=== PATIENT | female | born 1955 | race Caucasian/White ===

== ENCOUNTER 2016-11-21 14:44 | Emergency (ER) | payer BC ==
[2016-11-21 14:54] VITALS: RESP 18
--- NOTE | 2016-11-21 15:40 | ED ---
Abdominal Pain HPI - General Chief Complaint: Abdominal Pain Stated Complaint: Constipation Time Seen by Provider: 11/21/16 15:21 Source: patient Mode of arrival: ambulatory Limitations: no limitations - History of Present Illness Initial Comments: This is a 61-year-old female with a history of bariatric surgery, appendectomy, bowel torsion or presents emergency department for constipation 9 days. Right lower quadrant pain and right thoracic lateral back pain. She states that the symptoms been going on for the last 9 days however have progressively worsened over the last couple of days. The patient states that she has had very small bowel movements over the last 9 days. She does admit to passing flatus. She denies any nausea or vomiting. She states that when this all started she had 4 black stools and think that she may have seen a piece of plastic in one her stools. She does admit that she had surgery done a while ago because an IUD eroded into her bowel. She denies any fevers or chills. The patient is on opiates chronically for fibromyalgia however this pain is not typical for her fibromyalgia. She denies any dysuria however does admit to urinary frequency. No other complaints. - Related Data Home Medications Medication Instructions Recorded Confirmed Albuterol Sulfate [Proair Hfa] 2 puff INHALATION RT-Q6H PRN 01/14/16 11/21/16 FLUoxetine HCL [PROzac] 40 mg PO DAILY 01/14/16 11/21/16 Methocarbamol [Robaxin-750] 750 mg PO TID PRN 01/14/16 11/21/16 Pramipexole [Mirapex] 0.25 mg PO HS 01/14/16 11/21/16 Temazepam [Restoril] 30 mg PO HS 01/14/16 11/21/16 oxyCODONE HCL 20 mg PO 5XD 01/14/16 11/21/16 traZODone HCL [Desyrel] 100 mg PO HS 01/14/16 11/21/16 Propranolol [Inderal] 10 mg PO BID 11/21/16 11/21/16 oxyCODONE HCL [OxyCONTIN] 10 mg PO TID 11/21/16 11/21/16 Previous Rx's Medication Instructions Recorded Bisacodyl [Dulcolax] 10 mg RECTAL DAILY #20 supp 11/21/16 Allergies Allergy/AdvReac Type Severity Reaction Status Date / Time atropine sulfate Allergy Rash/Hives Verified 11/21/16 15:44 [From ] Barbiturates Allergy Swelling Verified 11/21/16 15:44 Histamine H2 Inhibitors Allergy Unknown Verified 11/21/16 15:44 hyoscyamine sulfate Allergy Rash/Hives Verified 11/21/16 15:44 [From ] phenobarbital [From ] Allergy Rash/Hives Verified 11/21/16 15:44 scopolamine hydrobromide Allergy Rash/Hives Verified 11/21/16 15:44 [From ] adhesive AdvReac red skin Verified 11/21/16 15:44 lorazepam [From Ativan] AdvReac Nausea & Verified 11/21/16 15:44 Vomiting meperidine HCl [From Demerol] AdvReac elevated BP Verified 11/21/16 15:44 metronidazole [From Flagyl] AdvReac headache, Verified 11/21/16 15:44 arms numb Sulfa (Sulfonamide AdvReac Nausea & Verified 11/21/16 15:44 Antibiotics) Vomiting Review of Systems ROS Statement: Those systems with pertinent positive or pertinent negative responses have been documented in the HPI. ROS Other: All systems not noted in ROS Statement are negative. Past Medical History Past Medical History: Cancer, Fibromyalgia, Memory Impairment, Osteoarthritis ( OA) Additional Past Medical History / Comment(s): essential tremors, DDD, chronic pain, hx. skin cancer History of Any Multi-Drug Resistant Organisms: MRSA Date of last positivie culture/infection: 2011 MDRO Source:: buttock Past Surgical History: Appendectomy, Bariatric Surgery, Joint Replacement, Orthopedic Surgery, Tonsillectomy, Tubal Ligation Additional Past Surgical History / Comment(s): gastric sleeve, uterine repair surg. from an IUD, neuroma removed indu. feet, bunionectomy, tendon release right leg, total left knee Past Anesthesia/Blood Transfusion Reactions: Postoperative Nausea & Vomiting ( PONV) Additional Past Anesthesia/Blood Transfusion Reaction / Comment(s): PONV, dizzy Past Psychological History: Anxiety, Depression Smoking Status: Former smoker Past Alcohol Use History: None Reported Additional Past Alcohol Use History / Comment(s): quit smoking 30 yrs. ago, smoked for 2 yrs. Past Drug Use History: None Reported - Past Family History Brother(s) Family Medical History: Cancer General Exam - General Exam Comments Initial Comments: Constitutional: Awake alert Appears comfortable Head: Normocephalic atraumatic Eyes: no conjunctival injection No scleral icterus EOMI Neck: No JVD Supple Heart: Regular rate rhythm normal S1-S2 no murmurs Lungs: Clear to auscultation bilaterally No wheezing No rales Abdomen: Soft nondistended patient has some mild tenderness in the right upper and lower quadrants however no rebound or guarding. The patient does not wince when I palpate her abdomen deeply. Extremities: Non edematous DP pulses intact Radial pulses intact Neuro: A&Ox3 No focal neurologic deficits Psych: Appropriate mood and affect Limitations: no limitations Course Vital Signs 11/21/16 14:48 Temperature 96.7 F L Pulse Rate 62 Respiratory 18 Rate Blood Pressure 185/83 O2 Sat by Pulse 98 Oximetry - Reevaluation(s) Reevaluation #1: 11/21/16 17:18 Patient states that she's having a significant extent amount of discomfort however there is no objective tenderness on examination. I told her I would Pursue a CAT Scan Because of Her Surgical History. X-Ray Was Reviewed and Unremarkable. Going to Give Some Morphine As Well. Medical Decision Making - Medical Decision Making Patient is currently comfortable. Computed tomography scan was reviewed and unremarkable for any acute findings. At this time believe that the patient's symptoms are likely due to constipation. Going to send her home with Dulcolax suppositories. She has MiraLAX at home that she can take her she can follow-up with her primary doctor. She can return if she has worsening or changing symptoms or all questions were answered. - Lab Data Result diagrams: 11/21/16 15:15 11/21/16 15:15 Lab Results 11/21/16 11/21/16 11/21/16 Range/Units 15:15 15:15 15:15 WBC 3.7 L (3.8-10.6) k/uL RBC 4.07 (3.80-5.40) m/uL Hgb 12.8 (11.4-16.0) gm/dL Hct 39.3 (34.0-46.0) % MCV 96.6 (80.0-100.0) fL MCH 31.4 (25.0-35.0) pg MCHC 32.6 (31.0-37.0) g/dL RDW 13.7 (11.5-15.5) % Plt Count 184 (150-450) k/uL Neutrophils % 61 % Lymphocytes % 29 % Monocytes % 6 % Eosinophils % 2 % Basophils % 1 % Neutrophils # 2.3 (1.3-7.7) k/uL Lymphocytes # 1.1 (1.0-4.8) k/uL Monocytes # 0.2 (0-1.0) k/uL Eosinophils # 0.1 (0-0.7) k/uL Basophils # 0.0 (0-0.2) k/uL Sodium 139 (137-145) mmol/L Potassium 4.6 (3.5-5.1) mmol/L Chloride 103 (98-107) mmol/L Carbon Dioxide 27 (22-30) mmol/L Anion Gap 9 mmol/L BUN 13 (7-17) mg/dL Creatinine 0.72 (0.52-1.04) mg/dL Est GFR (MDRD) Af Amer >60 (>60 ml/min/1.73 sqM) Est GFR (MDRD) Non-Af >60 (>60 ml/min/1.73 sqM) Glucose 100 H (74-99) mg/dL Calcium 9.6 (8.4-10.2) mg/dL Total Bilirubin 0.9 (0.2-1.3) mg/dL AST 22 (14-36) U/L ALT 33 (9-52) U/L Alkaline Phosphatase 94 (38-126) U/L Total Protein 6.8 (6.3-8.2) g/dL Albumin 4.2 (3.5-5.0) g/dL Amylase <30 L (30-110) U/L Lipase 20 L (23-300) U/L Urine Color Light Yellow Urine Appearance Clear (Clear) Urine pH 7.0 (5.0-8.0) Ur Specific Reese 1.009 (1.001-1.035) Urine Protein Negative (Negative) Urine Glucose (UA) Negative (Negative) Urine Ketones 1+ H (Negative) Urine Blood Negative (Negative) Urine Nitrate Negative (Negative) Urine Bilirubin Negative (Negative) Urine Urobilinogen <2.0 (<2.0) mg/dL Ur Leukocyte Esterase Trace H (Negative) Urine RBC 1 (0-5) /hpf Ur Squamous Epith Cells 1 (0-4) /hpf Hyaline Casts 1 (0-2) /lpf Urine Mucus Rare H (None) /hpf Disposition Clinical Impression: Abdominal pain Disposition: HOME SELF-CARE Condition: Stable Instructions: Abdominal Pain (ED) Prescriptions: Bisacodyl [Dulcolax] 10 mg RECTAL DAILY #20 supp Referrals: Ceasar Paulino MD [Primary Care Provider] - 1-2 days
[2016-11-21 16:28] LABS: Appearance,Urine Clear (Clear); Bilirubin,Urine Negative (Negative); Glucose,Urine (UA) Negative (Negative); Ketones,Urine 1+ (Negative); Leukocyte Esterase,Urine Trace (Negative); Mucus,Urine Rare /hpf; Nitrite,Urine Negative (Negative); Particle Count 1560; Protein,Urine Negative (Negative); RBC,Urine 1 /hpf (0-5); Specific Gravity,Urine 1.009 (1.001-1.035); Squamous Epithelial Cell,Urine 1 /hpf (0-4); UA Billing (MACRO vs. MICRO) MICRO; Urobilinogen,Urine <2.0 mg/dL (<2.0)
[2016-11-21 16:30] LABS: Basophils % (A) 1 %; CH 32.9; CHCM 34.2; Eosinophils # (A) 0.1 k/uL (0-0.7); Eosinophils % (A) 2 %; HCT 39.3 % (34.0-46.0); HDW 2.65; HGB 12.8 gm/dL (11.4-16.0); Luc # (Auto) 0.07; Luc % (Auto) 2; Lymphocytes # (A) 1.1 k/uL (1.0-4.8); Lymphocytes % (A) 29 %; MCH 31.4 pg (25.0-35.0); MCHC 32.6 g/dL (31.0-37.0); MCV 96.6 fL (80.0-100.0); Mean Platelet Volume 7.6; Monocytes # (A) 0.2 k/uL (0-1.0); Monocytes % (A) 6 %; Neutrophils # (A) 2.3 k/uL (1.3-7.7); Neutrophils % (A) 61 %; RBC 4.07 m/uL (3.80-5.40); RDW 13.7 % (11.5-15.5); WBC 3.7 k/uL (3.8-10.6)
[2016-11-21 16:36] LABS: ALT 33 U/L (9-52); AST 22 U/L (14-36); Alkaline Phosphatase 94 U/L (38-126); Amylase <30 U/L (30-110); Anion Gap 9 mmol/L; Blood Urea Nitrogen 13 mg/dL (7-17); Calcium 9.6 mg/dL (8.4-10.2); Carbon Dioxide 27 mmol/L (22-30); Chloride 103 mmol/L (98-107); Glucose 100 mg/dL (74-99); Non-African American GFR(MDRD) >60 (>60 ml/min/1.73 sqM); Potassium 4.6 mmol/L (3.5-5.1); Sodium 139 mmol/L (137-145); Total Bilirubin 0.9 mg/dL (0.2-1.3); Total Protein 6.8 g/dL (6.3-8.2)
--- NOTE | 2016-11-21 16:42 | XR ---
EXAMINATION TYPE: XR abdomen acute w cxr DATE OF EXAM: 11/21/2016 4:37 PM COMPARISON: NONE HISTORY: Constipation, right-sided abdominal pain TECHNIQUE: Single view of the chest and 2 views of the abdomen are submitted on a total of 4 images. FINDINGS: Single view of the chest demonstrates no evidence for acute pulmonary disease. The patient is rotate d. Some linear stranding likely reflects some atelectasis or scarring towards the left lower lobe. There is no evidence for pneumoperitoneum. There is a spinal curvature present. Probable vascular ca lcifications within the pelvis. Degenerative disc changes in the visualized spine. There is overlying artifact. The bowel gas pattern is unremarkable as there is air throughout nondilated small and large bowel. No sizeable air fluid levels. No mass effects are seen. No unusual calcifications. IMPRESSION: Unremarkable study
[2016-11-21] MEDS ORDERED: MORPHINE SULFATE 4 MG/ML SYRINGE IVP STA (17:16)
--- NOTE | 2016-11-21 18:12 | CT ---
EXAMINATION TYPE: CT abdomen pelvis wo con DATE OF EXAM: 11/21/2016 5:35 PM COMPARISON: NONE HISTORY: Mid to Right lower pain. CT DLP: 839 mGycm Automated exposure control for dose reduction was used. TECHNIQUE: Helical acquisition of images was performed from the lung bases through the pelvis. FINDINGS: The lung bases are clear. There is no pleural effusion. There is a hiatal hernia. Liver spleen pancreas and gallbladder appear normal. Bile ducts are not dilated. There is no adrenal mass. Kidneys have normal size. There is slight fullness of the right renal pelvis. Ureters are not d ilated. I see no enlargement of the calyces. There is no evidence of a renal mass. There is no retrop eritoneal adenopathy. There is no ascites. Bladder distends smoothly. I see no intestinal wall thicke lucas. There are no dilated loops. Appendix is not seen. There is no sign of appendicitis. I see no gabi ny destructive process. Uterus is retroverted. IMPRESSION: NO EVIDENCE OF RENAL STONE OR OBSTRUCTION. NO EVIDENCE OF APPENDICITIS. NO SIGN OF ACUTE ABDOMEN AND PELVIS. HIATAL HERNIA. PREVIOUS GASTRIC SURGERY NOTED.
[2016-11-21 19:24] VITALS: BP 183/83; PULSE 59; TEMP 97.1
== END 2016-11-21 19:25 | disposition home or self-care (01) ==
LOC: EC 14:44
DX: R10.11 Right upper quadrant pain (principal); K59.00 Constipation, unspecified; K44.9 Diaphragmatic hernia without obstruction or gangrene; M79.7 Fibromyalgia; R41.3 Other amnesia; F41.9 Anxiety disorder, unspecified; F32.9 Major depressive disorder, single episode, unspecified; M19.90 Unspecified osteoarthritis, unspecified site; Z87.891 Personal history of nicotine dependence; Z85.828 Personal history of other malignant neoplasm of skin; Z80.9 Family history of malignant neoplasm, unspecified; Z98.84 Bariatric surgery status; Z88.8 Allergy status to other drugs, medicaments and biological substances; Z91.048 Other nonmedicinal substance allergy status; Z88.5 Allergy status to narcotic agent; Z88.2 Allergy status to sulfonamides; Z79.899 Other long term (current) drug therapy; Z79.891 Long term (current) use of opiate analgesic
CPT/HCPCS: 99284 ×2; 96374 ×2; 36415; 80053; 82150; 83690; 85025; 81001; 74022; 74176; J2270

== ENCOUNTER → 2017-06-21 | Outpatient (CLI) | payer BC ==
[2017-06-21 18:31] LABS: Non-African American GFR(MDRD) >60 (>60 ml/min/1.73 sqM)
== END | disposition home or self-care (01) ==
LOC: LABWHC1 12:21
PROVIDERS: ATTEND Psychiatry & Neurology Neurology
DX: Z01.812 Encounter for preprocedural laboratory examination (principal); R41.3 Other amnesia; R26.89 Other abnormalities of gait and mobility
CPT/HCPCS: 36415; 82306; 82565; 82607; 84439; 84443

== ENCOUNTER → 2017-06-22 | Outpatient (CLI) | payer BC ==
--- NOTE | 2017-06-22 09:11 | MR ---
EXAMINATION TYPE: MR brain wo/w con DATE OF EXAM: 06/22/2017 8:15 AM COMPARISON: 10 and 714 HISTORY: Memory Loss / Imbalance CONTRAST: Patient received 15 mL intravenous MultiHance gadolinium contrast. Multiplanar and multispin-echo imaging of the brain was performed . Pre and post contrast enhanced i mages are obtained. The ventricles, basal cisterns and sulci overlying the cerebral convexities are mildly enlarged. There is evidence of mild periventricular white matter ischemic demyelination. Stable nonspecific white matter changes. No acute edema is seen on diffusion weighted imaging. There is no evidence for midline shift or mass effect. Acute intracranial hemorrhage or extra-axial collection is not evident. No enhancing lesions are seen. Mild mucosal thickening of the maxillary sinuses. Small amount of fluid within the right-sided mastoi d air cells unchanged. IMPRESSION: 1. stable nonspecific white matter changes. 2. Mild chronic paranasal sinusitis and chronic right-sided mastoiditis.
== END | disposition home or self-care (01) ==
LOC: RADMRIMAIN 07:31
PROVIDERS: ATTEND Psychiatry & Neurology Neurology
DX: R90.82 White matter disease, unspecified (principal); H70.91 Unspecified mastoiditis, right ear; J34.89 Other specified disorders of nose and nasal sinuses
CPT/HCPCS: 70553; A9577

== ENCOUNTER 2017-11-28 09:30 | Day surgery (SDC) | payer BC ==
[2017-11-27 12:04] VITALS: BMI 29.5
[~2017-11-28 09:30] MED LIST: LACTATED RINGERS 1,000 ML IV SCH; LIDOCAINE 1% 20 ML VIAL (10MG/ML) FOR IV START INTRADERMA PRN
[2017-11-28 10:27] VITALS: TEMP 97.3
[2017-11-28] MEDS ORDERED: PROPOFOL 10 MG/ML 20 ML VIAL IV ONE (11:10)
--- NOTE | 2017-11-28 11:32 | P.PCN ---
Date of Procedure: 11/28/17 Procedure(s) Performed: BRIEF HISTORY: Patient is a 62-year-old [place] white female,scheduled for an elective colonoscopy as a part of screening for colorectal neoplasia. She stated that she was noted to have a positive cologard testing. PROCEDURE PERFORMED: Colonoscopy. PREOPERATIVE DIAGNOSIS: Screening for colon cancer. IV sedation per Anesthesia. PROCEDURE: After informed consent was obtained, the patient, was brought into the endoscopy unit. IV sedation was administered by Anesthesia under continuous monitoring. Digital rectal examination was normal. Initially the Olympus CF- 160 flexible video colonoscope was then inserted in the rectum, gradually advanced into ththe hepatic flexure and further advancement was not done because of extremely poor prep that was encountered in the right colon.Careful examination was performed as the scope was gradually being withdrawn. mucosa of the transverse colon, descending colon, sigmoid colon, and rectum appeared normal. Retroflexion was performed in the rectum and no lesions were seen. The patient tolerated the procedure well. IMPRESSION: Poor prep in the right colon and scope was not advanced into the cecum. Rest of the colon appeared normal. RECOMMENDATIONS: Findings of this examination were discussed with the patient as well as a family. Because of extremely poor prep that was encountered on today's examination, she was advised to have a repeat screening colonoscopy in a few weeks with a 2 day prep.
[2017-11-28 11:34] VITALS: RESP 16
[2017-11-28 12:11] VITALS: BP 112/70; PULSE 88
== END 2017-11-28 12:13 | disposition home or self-care (01) ==
LOC: ORWHC2ENDO 09:30
PROVIDERS: ATTEND Internal Medicine Gastroenterology
DX: Z12.11 Encounter for screening for malignant neoplasm of colon (principal); Z53.09 Procedure and treatment not carried out because of other contraindication; F32.9 Major depressive disorder, single episode, unspecified; G89.29 Other chronic pain; Z88.8 Allergy status to other drugs, medicaments and biological substances; Z79.899 Other long term (current) drug therapy
CPT/HCPCS: J2704; G0121

== ENCOUNTER → 2018-01-01 | Outpatient (CLI) | payer BC ==
--- NOTE | 2018-01-01 11:33 | CT ---
EXAMINATION TYPE: CT sinus wo con DATE OF EXAM: 01/01/2018 COMPARISON: NONE HISTORY: Chronic sinusitis, infection CT DLP: 612.0 mGycm. Automated Exposure Control for Dose Reduction was Utilized. TECHNIQUE: CT scan of the sinuses is performed without contrast, axial images are obtained, coronal r eformatted images are also reviewed. FINDINGS: Mild mucosal thickening involving the ethmoid air cells maxillary sinus and frontal sinus. Tiny mucous retention cysts within each maxillary antrum. There is a wide patency of the ostium of the maxillary sinus with postsurgical changes suggested. Changes compatible with nasal septal deviation. Visualized portion of mastoid air cells show no abnormal opacification. The globes are intact bilate rally. IMPRESSION: 1. Postsurgical change with findings compatible with mild residual chronic sinusitis.
== END | disposition home or self-care (01) ==
LOC: RADCTMAIN 10:57
PROVIDERS: ATTEND Otolaryngology
DX: J32.9 Chronic sinusitis, unspecified (principal); Z98.890 Other specified postprocedural states
CPT/HCPCS: 70486

== ENCOUNTER → 2018-05-09 | Outpatient (CLI) | payer BC ==
--- NOTE | 2018-05-09 11:57 | MR ---
EXAMINATION TYPE: MR lumbar spine wo con DATE OF EXAM: 05/09/2018 COMPARISON: CT abdomen pelvis 11/21/2016 HISTORY: Left-sided pain radiating to left leg, M 54.16 TECHNIQUE: Multiplanar, multisequence images of the lumbar spine were acquired. L1-L2: Facet arthropathy change causes some encroachment on the lateral recesses right greater than l eft, circumferential extension of endplate disc complex results in some right-sided foraminal encroac hment. No significant central stenosis. L2-L3: Circumferential posterior disc bulge causes anterior mass effect on the thecal sac, there is f acet arthropathy resulting in a trefoil appearance of the thecal sac, no significant central stenosis or foraminal encroachment. L3-L4: Inferior endplate of L3 shows a probable Schmorl's node. Posterior extension of endplate disc complex causes anterior mass effect on the thecal sac, mild central canal stenosis. Hypertrophic guillen ges are present at the facets encroaching on the lateral recesses, lateral extension endplate disc co mplex causes foraminal encroachment bilaterally. L4-L5: Posterior broad-based disc bulge causes anterior mass effect on the thecal sac. Hypertrophic c hange of the facets and ligamentum flavum encroaches on the lateral recesses greater on the right penelope n on the left, circumferential extension of endplate disc complex encroaches somewhat on the right ne ural foramen. There is a trefoil appearance of the thecal sac. Mild spinal stenosis noted. Probable s ynovial cyst present lateral to the facet joint on the left could possibly contact the left L4 nerve root. L5-S1: Broad-based posterior disc bulge causes mild anterior mass effect on the thecal sac. No signif icant central stenosis. There is facet arthropathy with hypertrophic change of the ligamentum flavum. No significant foraminal encroachment. Lumbar segments are intact. No paraspinal masses are identified. Conus medullaris has a normal appe arance. There is a spinal curvature. Multilevel spondylosis is again noted, there is endplate discoge violeta marrow signal change, loss of disc height signal is present especially at L1-2 and also at L2-3, L3-4, L4-5 show loss of signal compatible with disc desiccation and degenerative disc disease. IMPRESSION: Multilevel degenerative disc disease, facet arthropathy and foraminal encroachment as described, donte elate for appropriate radiculopathies. Scoliosis.
== END | disposition home or self-care (01) ==
LOC: RADMRIMAIN 09:51
PROVIDERS: ATTEND Pain Medicine Pain Medicine
DX: M51.36 Other intervertebral disc degeneration, lumbar region (principal); M47.816 Spondylosis without myelopathy or radiculopathy, lumbar region; M41.9 Scoliosis, unspecified
CPT/HCPCS: 72148

== ENCOUNTER 2018-06-11 09:42 | Inpatient (IN) | payer BC ==
[2018-05-30 08:57] VITALS: BMI 28.7
[~2018-06-11 09:42] MED LIST changes: +ACETAMINOPHEN TAB 500 MG TAB PO ONE; +DEXAMETHASONE SOD PHOSPHATE 10 MG/ML 1 ML VIAL IV ONE; -LACTATED RINGERS 1,000 ML IV SCH; -LIDOCAINE 1% 20 ML VIAL (10MG/ML) FOR IV START INTRADERMA PRN; +MELOXICAM 7.5 MG TAB PO ONE; +MORPHINE SULFATE 4 MG/ML SYRINGE IV PRN; +ONDANSETRON 4 MG/2 ML VIAL IVP ONE; +ROPIVACAINE 246.25 MG, EPINEPHrine 0.5 MG, KETOROLAC 30 MG, cloNIDine HCL/PF 80 MCG, WA... MISCELLANE ONE; +TRANEXAMIC ACID 1,000 MG in SODIUM CHLORIDE 0.9% 50 ML IVPB ONE; +ceFAZolin IN SWFI 2 GM/20 ML SYRINGE IVP ONE
[2018-06-11] MEDS: LACTATED RINGERS 1,000 ML IV SCH (10:45)
[2018-06-11] MEDS ORDERED: MIDAZOLAM 2 MG/2 ML VIAL ONE ×2 (10:48→11:49)
[2018-06-11] MEDS ORDERED: fentaNYL (PF) 50 MCG/ML 2 ML AMP ONE ×2 (11:00→11:49)
[2018-06-11] MEDS ORDERED: MIDAZOLAM 2 MG/2 ML VIAL IVP ONE (11:01)
[2018-06-11] MEDS ORDERED: ROPIVACAINE 1,100 MG, SODIUM CHLORIDE 0.9% 330 ML MISCELLANE PRN ×2 (11:23)
[2018-06-11] MEDS ORDERED: NA PHOS,M-B/NA PHOS,DI-BA 133 ML ENEMA RECTAL PRN (11:32)
[2018-06-11] MEDS ORDERED: NALOXONE 0.4 MG/ML 1 ML VIAL IV PRN (11:32)
[2018-06-11] MEDS ORDERED: hydrOXYzine PAMOATE 25 MG CAP PO PRN (11:32)
[2018-06-11] MEDS ORDERED: HYDROmorphone 1 MG/ML 1 ML SYRINGE IVP PRN ×2 (11:32)
[2018-06-11] MEDS ORDERED: BISACODYL 10 MG SUPP RECTAL PRN (11:32)
[2018-06-11] MEDS ORDERED: HYDROcodone/APAP 5-325MG 1 EACH TAB PO PRN ×2 (11:32)
[2018-06-11] MEDS ORDERED: DIAZEPAM 5 MG TAB PO PRN ×2 (11:32)
[2018-06-11] MEDS ORDERED: ONDANSETRON 4 MG/2 ML VIAL IVP PRN (11:32)
[2018-06-11] MEDS ORDERED: MAGNESIUM HYDROXIDE 2,400 MG/10 ML CUP PO PRN (11:32)
--- NOTE | 2018-06-11 11:35 | P.ONQ ---
Anesthesiology Proc Note - PNB - Peripheral Nerve Block Performed Right Adductor Canal Infusion Time Out Performed: Yes (1115) Procedure Start Time: 11:15 Procedure Stop Time: :25 Indication: Acute Post-Operative Pain, Dx/Pain Location, Requested by physician Sedation Type: Sedate with meaningful contact maintained Preparation: Sterile Prep Position: Supine Catheter: Indwelling Needle Types: On-Q Needle Size: 100mm (4") Technique: Ultrasound Injectate: 0.5% Ropivacaine (see comment for volume) (20ml) Blood Aspirated: No Pain Paresthesia on Injection Noted: No Resistance on Injection: Normal Events: Uneventful and Well Tolerated
[2018-06-11] MEDS ORDERED: BUPIVACAINE (PF) 0.75% 10 ML VIAL ONE (11:49)
[2018-06-11] MEDS ORDERED: PROPOFOL 10 MG/ML 20 ML VIAL IV ONE (11:49)
[2018-06-11] MEDS ORDERED: DEXTROSE 50%-WATER 50 ML VIAL IV ONE (11:49)
[2018-06-11] MEDS ORDERED: ceFAZolin 3,000 MG in SODIUM CHLORIDE 0.9% IRRIGATIO 3,000 ML IRRIGATION ONE (12:20)
[2018-06-11] MEDS ORDERED: LACTATED RINGERS 1,000 ML IV ONE (12:59)
--- NOTE | 2018-06-11 13:20 | P.OP ---
Date of Procedure: 06/11/18 Preoperative Diagnosis: Severe osteoarthritis right knee Postoperative Diagnosis: Severe osteoarthritis right knee Procedure(s) Performed: Right total knee arthroplasty Implants: [employer] Oxinium femoral component size 5, right [employer] Michelle II right nonporous tibial baseplate size 4 [employer] size 9 mm Legion XLPE high flexion articular insert, size 3-4 [employer] Michelle II resurfacing patellar component, 32 mm All components were cemented using [place]rico bone cement.. The articulation is Oxinium on polyethylene. Surgeon: Mukund Kramer [employer]active Waste Disposal Dispatcher #1: Linsey Katz Estimated Blood Loss (ml): 50 Pathology: other (Bone and cartilage) Condition: stable Disposition: PACU Indications for Procedure: After failure of conservative treatment we discussed the surgical and nonsurgical treatment options at length. Patient wishes to proceed with a total knee arthroplasty. Complications specific to this procedure were discussed at length, including but not limited to infection, bleeding, stiffness , and nerve injury. Patient is aware of all these complications and informed consent was obtained Operative Findings: The operative findings are consistent with severe osteoarthritis of the right knee Description of Procedure: Patient was seen in the preoperative area consent was reviewed and operative site was marked with a skin marker. An adductor canal pain catheter was placed by anesthesia in the preoperative area. Patient was then brought to the operating room and given preoperative antibiotics intravenously. A spinal anesthetic was administered by the anesthesia department. A tourniquet was placed on the upper thigh and the lower extremity was prepped and draped in usual sterile fashion. A gram of transexamic acid was given. A universal timeout was then performed which confirmed the patient's name, surgical site, ALLERGIES, and consent. The lower extremity was then exsanguinated and tourniquet was inflated to 250 mmHg. A standard and anterior midline approach to the knee was performed. The skin and subcutaneous tissue was dissected down to the patellar tendon. A medial parapatellar arthrotomy was then performed. The knee was then extended, the patellar was everted, and the knee was again flexed. Anterior horns of both menisci were excised, and a release was performed to the posterior medial aspect of the knee. On gross visual inspection, there was complete loss of articular cartilage in the medial and patellofemoral joint spaces. There was also significant cartilage damage in the lateral compartment. There were multiple periarticular osteophytes which were then removed with a Ronguer. The femoral canal was then opened with the appropriate drill, and the intramedullary femoral cutting guide was then placed and set for 4 of valgus. The distal femoral cutting block was then pinned in place, and the distal femur was then cut. The cutting block was then removed and the cut was checked for flatness. Next, the sizing guide was then placed and set for 3 external rotation based off of the epicondylar axis and Whitesides line. After the femur was sized, the appropriate 4-in-1 cutting block was then pinned in place. The anterior condyles were cut without notching. The posterior and chamfer cuts were performed while protecting the collateral ligaments. The cutting block was then removed, and the femoral canal was plugged with autologous bone. Attention was then directed to the tibia. The remaining ACL was removed with a Ronguer, and the tibia was then gently subluxed forward with a large bent knee retractor. Any remaining menisci was excised. The posterior lateral corner was cauterized in order to cauterize the lateral geniculate artery. The extra medullary tibial cutting guide was then placed, set for the appropriate rotation , slope, and depth of resection. The proximal tibia cutting guide was then pinned in place. Proximal tibia was then cut and sized. Next trials were then placed with the appropriate-sized insert. The knee was able to fully extend and flex to 130 and was stable throughout all range of motion. The knee was then extended, patella everted. Patella was then measured, and then using an osteotomy guide, the patella was cut at the appropriate level. The patella was then measured and drilled and the patella trial was then placed. The knee was then taken through range of motion with the patella trial and the patella tracked normally. The knee was then extended patella trial was then removed and the patella was everted. Knee was then flexed and lug holes were drilled through the femoral trial and the femoral trial was then removed. The tibial was then exposed, and the tibial broach guide was then pinned in place after it was set for the appropriate rotation to allow for the most coverage without overhang. The tibia was then reamed and broached. The cut surfaces of bone were then irrigated with pulsatile lavage. The posterior structures were injected with the ropivacaine solution. The knee was also irrigated with Irrisept solution. The components were then opened, the cement was mixed, and the components were then cemented in place. The cement was allowed to harden with the knee in full extension. While the cement was hardening, the remaining soft tissues were then injected with a ropivacaine solution, which consisted of 246.25 mg of ropivacaine, 0.5 mg of epinephrine, 30 mg of Toradol, 80 g of clonidine, and 48.45 mL of sterile water, for a total of 100 mL of fluid injected. After the cemented hardened. The tourniquet was released, and hemostasis was obtained. A second gram of transexamic acid was given. The knee was again irrigated. The knee was again taken through range of motion and found to be stable throughout all range of motion of 0-130 , and the patella tracked normally. The fascia was then closed with #2 strata fix suture. The subcutaneous tissue was closed with 3-0 Vicryl and 3-0 strata fix. Dermabond glue was used for the skin and placed with the knee in flexion. The patient was placed in a sterile silver dressing. Patient was then transferred to recovery room in stable condition. The clerical administrative assistant SOPHY Gordon was required due the complexity surgery and the need for a skilled dietary assistant. She assisted in positioning, draping, retraction, and closure of the wound.
[2018-06-11] MEDS ORDERED: HYDROmorphone 1 MG/ML 1 ML SYRINGE IVP ONE ×2 (14:15→14:30)
--- NOTE | 2018-06-11 14:31 | XR ---
Right knee HISTORY: Postop right knee arthroplasty 2 views of the right knee Patient is status post right knee arthroplasty. There is anatomic alignment. Lucency is present in th e soft tissues compatible with postop state. IMPRESSION: Orthopedic follow-up
[2018-06-11] MEDS ORDERED: diphenhydrAMINE 50 MG/ML 1 ML VIAL IVP ONE (15:02)
[2018-06-11] MEDS: SODIUM CHLORIDE 0.9% 1,000 ML IV SCH (16:55)
[2018-06-11] MEDS: HYDROmorphone 1 MG/ML 1 ML SYRINGE IVP PRN (17:51)
[2018-06-11] MEDS: ceFAZolin IN SWFI 2 GM/20 ML SYRINGE IVP SCH (19:34)
[2018-06-11] MEDS ORDERED: ALBUTEROL NEBULIZED 2.5 MG/3 ML INHALATION PRN (20:03)
[2018-06-11] MEDS ORDERED: traZODone HCL 100 MG TAB PO PRN (20:03)
[2018-06-11] MEDS: SENNOSIDES-DOCUSATE SODIUM 1 EACH TAB PO SCH (20:46)
[2018-06-11] MEDS: ASPIRIN 325 MG TAB PO SCH (20:46)
[2018-06-11] MEDS: MEMANTINE 10 MG TAB PO SCH (20:46)
[2018-06-11] MEDS: amLODIPine 5 MG TAB PO SCH (20:46)
[2018-06-11] MEDS: MORPHINE SULFATE ER 15 MG TABLET PO PRN (20:47)
[2018-06-11] MEDS: PRAMIPEXOLE 0.25 MG TAB PO SCH (21:16)
[2018-06-11] MEDS: CYCLOBENZAPRINE 5 MG TAB PO SCH ×2 (22:16→22:18)
[2018-06-11] MEDS: TEMAZEPAM 30 MG CAP PO PRN (22:21)
[2018-06-12] MEDS: oxyCODONE ER 10 MG TAB.ER.12H PO PRN ×5 (00:24→23:05)
[2018-06-12] MEDS: MORPHINE SULFATE ER 15 MG TABLET PO PRN ×4 (03:01→20:29)
[2018-06-12] MEDS: SODIUM CHLORIDE 0.9% 1,000 ML IV SCH ×2 (04:08→19:41)
[2018-06-12] MEDS: ceFAZolin IN SWFI 2 GM/20 ML SYRINGE IVP SCH (04:11)
--- NOTE | 2018-06-12 06:12 | P.PN ---
Progress Note - Text Progress Note Date: 06/12/18 63-year-old female status post right total knee arthroplasty postop day #1. Patient status post adductor canal catheter, doing well no motor weakness no sensory deficit. Patient is resting comfortably, VAS is 3/10.
[2018-06-12 07:13] LABS: Basophils % (A) 0 %; Eosinophils % (A) 0 %; HCT 36.7 % (34.0-46.0); HGB 12.2 gm/dL (11.4-16.0); Lymphocytes # (A) 0.8 k/uL (1.0-4.8); Lymphocytes % (A) 9 %; MCH 31.2 pg (25.0-35.0); MCHC 33.2 g/dL (31.0-37.0); MCV 93.9 fL (80.0-100.0); Monocytes # (A) 0.3 k/uL (0-1.0); Monocytes % (A) 4 %; Neutrophils # (A) 7.8 k/uL (1.3-7.7); Neutrophils % (A) 87 %; Platelet Count 186 k/uL (150-450); RBC 3.91 m/uL (3.80-5.40); RDW 12.8 % (11.5-15.5)
--- NOTE | 2018-06-12 07:58 | CONS ---
CONSULTATION DATE OF CONSULTATION: 06/11/2018 REASON FOR CONSULTATION: Medical management requested by Dr. Kramer. CONSULTATION: This is a very pleasant 63-year-old patient of Dr. Paulino who has undergone a right total knee arthroplasty. Patient's chronic stable medical conditions include fibromyalgia, GERD, hypertension, herniated disc in the spine, osteoarthritis, essential tremor, skin cancer. Patient is getting her medications from the pharmacy including a chronic narcotics and starting to get some early withdrawal symptoms. REVIEW OF SYSTEMS: CONSTITUTIONAL: A bit anxious. HEENT: None. RESPIRATORY: None. CARDIOVASCULAR: None. GASTROINTESTINAL: Heartburn. GENITOURINARY: None. MUSCULOSKELETAL: Aches and pains in different joints. DERMATOLOGICAL: None. HEMATOLOGICAL: None. LYMPHATIC: None. PSYCHIATRY: Anxious. NEUROLOGICAL: None. PAST MEDICAL HISTORY: Fibromyalgia, GERD, hypertension, neurologic disorder, osteoarthritis, essential tremor, migraine, skin cancer, blood in stool, fall in 2015, shattered left elbow and humerus at 3 places, 11 screws, only 70% use of the left arm. PAST SURGICAL HISTORY: Appendectomy, bariatric surgery, tonsillectomy, tubal ligation, gastric sleeve, uterine repair surgery from an IUD, neuroma removed from both the feet, bunionectomy, tendon release left leg, skin cancer removed from right breast, left knee replacement, surgery left arm and elbow from injury, Lasix left eye surgery. SOCIAL HISTORY: Does not smoke. No alcohol. . FAMILY HISTORY: Cancer, type unknown. HOME MEDICATIONS: Desyrel 100 mg q.h.s. p.r.n., OxyContin 10 mg p.o. q.4 p.r.n., Norvasc 5 mg q.h.s., Restoril 30 mg q.h.s. p.r.n., Inderal 10 mg p.o. daily, Mirapex 0.25 p.o. q.h.s., MS Contin 50 mg p.o. q.6 p.r.n., Namenda 10 mg p.o. b.i.d., Losartan 50 mg q.h.s., Prozac 40 mg p.o. daily, EpiPen p.r.n., Flexeril 5 mg p.o. q.i.d., ProAir 2 puffs q.6 p.r.n. ALLERGIES: To STRAWBERRY, ATROPINE, BARBITURATES, H2 INHIBITORS, HYOSCYAMINE, PHENOBARBITAL, SCOPOLAMINE, ADHESIVE, ATIVAN, MEPERIDINE, FLAGYL, SULFUR. PHYSICAL EXAMINATION: Temperature 97.8, pulse 69, respirations 16, blood pressure 145/82 pulse ox 93% on room air. GENERAL APPEARANCE: Average built, sitting up, awake. EYES: Pupils equal, conjunctive are normal. HEENT: External appearance of nose and ears normal. Oral cavity normal. NECK: JVD not raised. Mass not palpable. RESPIRATORY: Effort normal. LUNGS: Fair entry. CARDIOVASCULAR: First and second sounds normal, no edema. ABDOMEN: Soft, nontender. Liver and spleen not palpable. LYMPHATIC: No lymph node palpable in neck or axillae. PSYCHIATRY: Alert and oriented x3. Mood and affect slightly anxious-appearing. MUSCULOSKELETAL: Dressing over the right knee. INVESTIGATIONS: No blood work. ASSESSMENT: 1. Right total knee arthroplasty. 2. Gastroesophageal reflux disease. 3. Essential hypertension. 4. Mild cognitive impairment. 5. Primary osteoarthritis, multiple joints. 6. Essential tremors. 7. Chronic pain syndrome from herniated disc in the spine for which patient takes medications. PLAN: Postoperatively, patient wants to take her home pain medications. Nurse did call Orthopedics and they are okay with the same. Since patient is already taking Flexeril, will hold off patient's Valium because patient is also getting both MS Contin and OxyContin and it may prove to be too much. Care was discussed with the patient. Questions were answered. Thank you, Dr. Kramer. DANIEL / GEORGIAN: [id number] /
[2018-06-12] MEDS: ASPIRIN 325 MG TAB PO SCH ×2 (08:22→20:29)
[2018-06-12] MEDS: MELOXICAM 7.5 MG TAB PO SCH (08:23)
[2018-06-12] MEDS: PROPRANOLOL 10 MG TAB PO SCH (08:23)
[2018-06-12] MEDS: FLUoxetine HCL 20 MG CAP PO SCH (08:23)
[2018-06-12] MEDS: CYCLOBENZAPRINE 5 MG TAB PO SCH ×4 (08:24→22:23)
[2018-06-12] MEDS: MEMANTINE 10 MG TAB PO SCH ×2 (08:24→20:29)
[2018-06-12] MEDS: LACTATED RINGERS 1,000 ML IV SCH (10:05)
--- NOTE | 2018-06-12 10:09 | P.DS ---
Providers Date of admission: 06/11/18 09:42 Expected date of discharge: 06/12/18 Attending physician: Mukund Kramer Consults: 06/11/18 11:32 Consult Physician Routine Consulting Provider: Ceasar Paulino Consult Reason/Comments: medical management Do you want consulting provider notified?: Yes 06/11/18 15:53 Consult Physician Routine Consulting Provider: Dominik Mercado Consult Reason/Comments: Medical Management Do you want consulting provider notified?: Yes Primary care physician: Ceasar Paulino - Discharge Diagnosis(es) (1) Primary osteoarthritis of right knee Current Visit: Yes Status: Acute (2) Status post total right knee replacement Current Visit: Yes Status: Acute Hospital Course: This is a 63-year-old female with known history of degenerative arthritis of the right knee. The patient presents for evaluation. After discussion and consideration patient elects to proceed with total knee arthroplasty. The patient is seen preoperatively by Dr. Kramer and medically cleared for surgery by their primary care physician. Patient is admitted to [facility] on 06/11/2018 for total knee arthroplasty. The procedures performed without complication or sequelae. The patient is doing well postoperatively. Labs and vital signs are stable on day of discharge. On day of discharge patient's knee incision is healing well. There is minimal erythema. There is no drainage noted at this time. There is minimal soft tissue swelling to the knee. Patient has full foot and ankle motion without difficulty or pain. Neurovascular status to the right lower extremity is intact. Patient is discharged home in good condition. Patient receives pain medication for chronic pain from her pain management doctor. Please see med rec for accurate list of home medications. Plan - Discharge Summary Discharge Rx Participant: Yes New Discharge Prescriptions: New Aspirin 325 mg PO BID #60 tab Sennosides [Senokot] 1 tab PO BID #60 tablet No Action Temazepam [Restoril] 30 mg PO HS PRN PRN Reason: Insomnia Albuterol Sulfate [Proair Hfa] 2 puff INHALATION RT-Q6H PRN PRN Reason: Shortness Of Breath Pramipexole [Mirapex] 0.25 mg PO HS traZODone HCL [Desyrel] 100 mg PO HS PRN PRN Reason: Insomnia Propranolol [Inderal] 10 mg PO DAILY oxyCODONE HCL [OxyCONTIN] 10 mg PO Q4H PRN PRN Reason: Pain Losartan Potassium 50 mg PO HS@1900 amLODIPine BESYLATE [Norvasc] 5 mg PO HS Cyclobenzaprine [Flexeril] 5 mg PO QID EPINEPHrine (Auto Inject) [Epipen] 0.3 mg IM ONCE PRN PRN Reason: Anaphylaxis Memantine [Namenda] 10 mg PO BID FLUoxetine HCL [PROzac] 40 mg PO QAM Morphine Sulfate ER [Ms Contin] 15 mg PO Q6H PRN PRN Reason: Pain Discharge Medication List Albuterol Sulfate [Proair Hfa] 2 puff INHALATION RT-Q6H PRN 01/14/16 [History] Pramipexole [Mirapex] 0.25 mg PO HS 01/14/16 [History] Temazepam [Restoril] 30 mg PO HS PRN 01/14/16 [History] traZODone HCL [Desyrel] 100 mg PO HS PRN 01/14/16 [History] Propranolol [Inderal] 10 mg PO DAILY 11/21/16 [History] oxyCODONE HCL [OxyCONTIN] 10 mg PO Q4H PRN 11/21/16 [History] Cyclobenzaprine [Flexeril] 5 mg PO QID 11/27/17 [History] Losartan Potassium 50 mg PO HS@1900 11/27/17 [History] amLODIPine BESYLATE [Norvasc] 5 mg PO HS 11/27/17 [History] EPINEPHrine (Auto Inject) [Epipen] 0.3 mg IM ONCE PRN 05/30/18 [History] FLUoxetine HCL [PROzac] 40 mg PO QAM 05/30/18 [History] Memantine [Namenda] 10 mg PO BID 05/30/18 [History] Morphine Sulfate ER [Ms Contin] 15 mg PO Q6H PRN 05/30/18 [History] Aspirin 325 mg PO BID #60 tab 06/12/18 [Rx] Sennosides [Senokot] 1 tab PO BID #60 tablet 06/12/18 [Rx] Follow up Appointment(s)/Referral(s): Mukund Kramer DO [Doctor of Osteopathic Medicine] - 2 Weeks Ambulatory/Diagnostic Orders: Continuous Passive Motion (CPM) Machine [DME.AMB1] Time Frame: 3 Weeks, Location : None Selected Activity/Diet/Wound Care/Special Instructions: Weightbearing as tolerated with a walker. CPM 5-6h daily Leave dressing intact. May be removed by home care nurse in 10 days. May shower with dressing on. Please call [facility] with any questions or concerns, Discharge Disposition: HOME WITH HOME HEALTH SERVICES
[2018-06-12] MEDS: HYDROmorphone 1 MG/ML 1 ML SYRINGE IVP PRN ×2 (11:20→17:24)
[2018-06-12] MEDS ORDERED: LOSARTAN 50 MG TAB PO SCH (19:00)
[2018-06-12] MEDS: SENNOSIDES-DOCUSATE SODIUM 1 EACH TAB PO SCH (20:29)
[2018-06-12] MEDS: TEMAZEPAM 30 MG CAP PO PRN (20:29)
[2018-06-12] MEDS: amLODIPine 5 MG TAB PO SCH (20:29)
[2018-06-12] MEDS: PRAMIPEXOLE 0.25 MG TAB PO SCH (20:30)
--- NOTE | 2018-06-12 22:31 | PN ---
PROGRESS NOTE DATE OF SERVICE: 06/12/2018 PRESENTING COMPLAINT: Right knee surgery. INTERVAL HISTORY: Patient is status post right knee arthroplasty. Some pain is present. No nausea, vomiting, tolerating a diet. Did work with Therapy. No new issues. Has been out of bed. REVIEW OF SYSTEMS: Done for constitutional, cardiovascular, GI, pulmonary, musculoskeletal; relevant findings as above. CURRENT MEDICATIONS: Reviewed. EXAMINATION: Temperature 97.7, pulse 84, respirations 16, blood pressure 155/90, pulse ox 95% on room air. GENERAL APPEARANCE: Sitting up, comfortable. EYES: Pupils equal. Conjunctivae normal. HEENT: External nose and ears normal. Oral cavity normal. NECK: JVD not raised. Mass not palpable. RESPIRATORY: Effort normal. Lungs are clear. CARDIOVASCULAR: First and second sounds normal. No edema. ABDOMEN: Soft, nontender. Liver and spleen not palpable. PSYCHIATRY: Alert and oriented x3. Mood and affect were normal. INVESTIGATIONS: Hemoglobin 12.2. ASSESSMENT: 1. Right total knee arthroplasty. 2. Gastroesophageal reflux disease. 3. Essential hypertension. 4. Mild cognitive impairment. 5. Primary osteoarthritis, multiple joints. 6. Essential tremor. 7. Chronic pain syndrome from herniated disc in the spine for which the patient takes medication. Overall patient doing better, tolerating a diet. The patient has been put back on her home pain medications. MMODL / IJN: [id number] /
[2018-06-13] MEDS: MORPHINE SULFATE ER 15 MG TABLET PO PRN ×2 (02:33→11:23)
[2018-06-13] MEDS: oxyCODONE ER 10 MG TAB.ER.12H PO PRN ×3 (03:15→12:26)
[2018-06-13] MEDS: LACTATED RINGERS 1,000 ML IV SCH (05:27)
[2018-06-13 07:41] VITALS: BP 153/83; PULSE 82; RESP 14; TEMP 98.2
[2018-06-13] MEDS: ASPIRIN 325 MG TAB PO SCH (07:42)
[2018-06-13] MEDS: MELOXICAM 7.5 MG TAB PO SCH (07:42)
[2018-06-13] MEDS: MEMANTINE 10 MG TAB PO SCH (07:42)
[2018-06-13] MEDS: FLUoxetine HCL 20 MG CAP PO SCH (07:42)
[2018-06-13] MEDS: CYCLOBENZAPRINE 5 MG TAB PO SCH ×2 (07:45→12:26)
[2018-06-13] MEDS: PROPRANOLOL 10 MG TAB PO SCH (07:45)
--- NOTE | 2018-06-13 23:20 | PN ---
PROGRESS NOTE DATE OF SERVICE: 06/13/2018 PRESENTING COMPLAINT: Right knee surgery. INTERVAL HISTORY: Patient is status post right knee surgery, doing much better. Pain is controlled. Patient does have some chronic pain, otherwise doing well. Did ambulate to the bathroom. Did work with Therapy. REVIEW OF SYSTEMS: Done for constitutional, cardiovascular, GI, pulmonary, musculoskeletal; relevant findings as above. CURRENT MEDICATIONS: Reviewed. EXAMINATION: Temperature 98.2, pulse 82, respirations 14, blood pressure 160/83, pulse ox 97% on room air. GENERAL APPEARANCE: Comfortable. EYES: Pupils equal. Conjunctivae normal. HEENT: External nose and ears normal. Oral cavity normal. NECK: JVD not raised. Mass not palpable. RESPIRATORY: Effort normal. Lungs are clear. CARDIOVASCULAR: First and second sounds normal. No edema. ABDOMEN: Soft, nontender. Liver and spleen not palpable. PSYCHIATRY: Alert and oriented x3. Mood and affect normal. INVESTIGATION: No blood work from today. ASSESSMENT: 1. Right total knee arthroplasty. 2. Gastroesophageal reflux disease. 3. Essential hypertension. 4. Mild cognitive impairment. 5. Primary osteoarthritis, multiple joints. 6. Essential tremor. 7. Chronic pain syndrome from herniated disc in the spine for which patient takes medications. PLAN: Continue current medication and treatment plan. Care was discussed with the patient. MMODL / IJN: [id number] /
== END 2018-06-13 13:45 | disposition home health service (06) | DRG 470 ==
LOC: 2ORMAIN 09:42 → 3SUR 15:14
PROVIDERS: ADMIT Orthopaedic Surgery; ATTEND Orthopaedic Surgery
PROC: 0SRC069 Replacement of Right Knee Joint with Oxidized Zirconium on Polyethylene Synthetic Substitute, Cemented, Open Approach (ICD-10-PCS; principal; 2018-06-11 16:55)
DX: M17.11 Unilateral primary osteoarthritis, right knee (principal); G25.0 Essential tremor; G31.84 Mild cognitive impairment of uncertain or unknown etiology; G89.4 Chronic pain syndrome; I10 Essential (primary) hypertension; K21.9 Gastro-esophageal reflux disease without esophagitis; M79.7 Fibromyalgia; G43.909 Migraine, unspecified, not intractable, without status migrainosus; F32.9 Major depressive disorder, single episode, unspecified; F45.0 Somatization disorder; G20 Parkinson's disease; M54.9 Dorsalgia, unspecified; R26.9 Unspecified abnormalities of gait and mobility; F41.9 Anxiety disorder, unspecified; J45.909 Unspecified asthma, uncomplicated; G47.00 Insomnia, unspecified; G25.81 Restless legs syndrome; Z88.1 Allergy status to other antibiotic agents; Z88.5 Allergy status to narcotic agent; Z88.2 Allergy status to sulfonamides; Z88.8 Allergy status to other drugs, medicaments and biological substances; Z90.49 Acquired absence of other specified parts of digestive tract; Z91.018 Allergy to other foods; Z91.048 Other nonmedicinal substance allergy status; Z85.828 Personal history of other malignant neoplasm of skin; Z79.891 Long term (current) use of opiate analgesic; Z79.899 Other long term (current) drug therapy; Z86.14 Personal history of Methicillin resistant Staphylococcus aureus infection; Z98.84 Bariatric surgery status; Z98.51 Tubal ligation status; Z96.652 Presence of left artificial knee joint; Z87.891 Personal history of nicotine dependence; Z91.81 History of falling; Z82.3 Family history of stroke; Z82.49 Family history of ischemic heart disease and other diseases of the circulatory system; Z82.62 Family history of osteoporosis; Z82.0 Family history of epilepsy and other diseases of the nervous system
CPT/HCPCS: 85025; 88300

== ENCOUNTER 2019-06-21 20:54 | Emergency (ER) | payer MEDICARE, BC ==
[2019-06-21] MEDS ORDERED: IBUPROFEN 600 MG TAB PO STA (21:13)
[2019-06-21] MEDS ORDERED: PIPERACILLIN-TAZOBACTAM 3.375 GM in SODIUM CHLORIDE 0.9% 100 ML IVPB STA (21:13)
[2019-06-21] MEDS ORDERED: ACETAMINOPHEN TAB 500 MG TAB PO STA (21:13)
[2019-06-21] MEDS ORDERED: VANCOMYCIN IV PER PHARMACY 1 EACH MISC MISCELLANE PRN (21:13)
[2019-06-21] MEDS ORDERED: VANCOMYCIN 1,500 MG in SODIUM CHLORIDE 0.9% 250 ML IVPB STA (21:22)
[2019-06-21] MEDS: SODIUM CHLORIDE 0.9% 500 ML 500 ML IV SCH ×3 (21:40→23:20)
[2019-06-21 22:01] LABS: Basophils % (A) 0 %; Eosinophils # (A) 0.1 k/uL (0-0.7); Eosinophils % (A) 1 %; HCT 37.3 % (34.0-46.0); HGB 12.4 gm/dL (11.4-16.0); Lymphocytes # (A) 0.4 k/uL (1.0-4.8); Lymphocytes % (A) 3 %; MCH 31.6 pg (25.0-35.0); MCHC 33.3 g/dL (31.0-37.0); Mean Platelet Volume 7.3; Monocytes # (A) 0.3 k/uL (0-1.0); Monocytes % (A) 2 %; Neutrophils # (A) 12.5 k/uL (1.3-7.7); Neutrophils % (A) 94 %; Platelet Count 169 k/uL (150-450); RBC 3.92 m/uL (3.80-5.40); RDW 14.2 % (11.5-15.5); WBC 13.2 k/uL (3.8-10.6)
--- NOTE | 2019-06-21 22:02 | XR ---
EXAMINATION TYPE: XR elbow limited LT DATE OF EXAM: 06/21/2019 COMPARISON: NONE HISTORY: Pain postop TECHNIQUE: 2 views FINDINGS: There is soft tissue swelling and subcutaneous edema around the elbow joint. There is elbow joint prosthesis. Components are in anatomic position. There is absence of the radial head. IMPRESSION: Soft tissue swelling. Elbow joint prosthesis in good position.
--- NOTE | 2019-06-21 22:03 | XR ---
EXAMINATION TYPE: XR chest 2V DATE OF EXAM: 06/21/2019 COMPARISON: 11/21/2016 HISTORY: Fever TECHNIQUE: Frontal and lateral views of the chest are obtained. FINDINGS: Heart and mediastinum are normal. Lungs are clear of consolidation. There is small area of subsegmental atelectasis at the left lung base. Bony thorax is intact. IMPRESSION: Minimal subsegmental atelectasis left lung base. Normal heart. No significant change.
[2019-06-21 22:16] LABS: ALT 25 U/L (9-52); AST 24 U/L (14-36); African American GFR (CKD) >90 (>60 ml/min/1.73 sqM); Albumin 3.5 g/dL (3.5-5.0); Alkaline Phosphatase 112 U/L (38-126); Anion Gap 9 mmol/L; Blood Urea Nitrogen 18 mg/dL (7-17); Calcium 8.8 mg/dL (8.4-10.2); Carbon Dioxide 22 mmol/L (22-30); Chloride 100 mmol/L (98-107); Creatine Kinase 30 U/L (30-135); Glucose 118 mg/dL (74-99); Non-African American GFR(CKD) >90 (>60 ml/min/1.73 sqM); Potassium 3.9 mmol/L (3.5-5.1); Sodium 131 mmol/L (137-145); Total Bilirubin 1.5 mg/dL (0.2-1.3); Total Protein 6.1 g/dL (6.3-8.2)
[2019-06-21 22:18] LABS: INR 1.2 (<1.2); Partial Thromboplastin Time 27.4 sec (22.0-30.0); Prothrombin Time 12.4 sec (9.0-12.0)
--- NOTE | 2019-06-21 22:27 | ED ---
Fever HPI - General Chief Complaint: Fever Stated Complaint: Fever Time Seen by Provider: 06/21/19 21:13 Source: patient, family Mode of arrival: ambulatory Limitations: no limitations - History of Present Illness Initial Comments: Beverly is a pleasant 64-year-old female who presents to the emergency department today for evaluation of fever, generalized malaise, nausea vomiting and concern for infection in her left elbow. Patient underwent a left elbow reconstruction with Dr. Mata at an outside hospital on May 26, patient reports that she followed up 10 days postoperative and was doing quite well. Over the past few days she has noticed her elbows become red, swollen, hot and very painful with range of motion. In the same number of days patient reports she's been feeling generalized malaise, decreased appetite, nausea, vomiting and fever. This evening she noted her fever was 103 Fahrenheit at home at which time she decided to come to the emergency department for evaluation. - Related Data Home Medications Medication Instructions Recorded Confirmed Albuterol Sulfate [Proair Hfa] 2 puff INHALATION RT-Q6H PRN 01/14/16 06/11/18 Pramipexole [Mirapex] 0.25 mg PO HS 01/14/16 06/11/18 Temazepam [Restoril] 30 mg PO HS PRN 01/14/16 06/11/18 traZODone HCL [Desyrel] 100 mg PO HS PRN 01/14/16 06/11/18 Propranolol [Inderal] 10 mg PO DAILY 11/21/16 06/11/18 oxyCODONE HCL [OxyCONTIN] 10 mg PO Q4H PRN 11/21/16 06/11/18 Cyclobenzaprine [Flexeril] 5 mg PO QID 11/27/17 06/11/18 Losartan Potassium 50 mg PO HS@1900 11/27/17 06/11/18 amLODIPine BESYLATE [Norvasc] 5 mg PO HS 11/27/17 06/11/18 EPINEPHrine (Auto Inject) [Epipen] 0.3 mg IM ONCE PRN 05/30/18 06/11/18 FLUoxetine HCL [PROzac] 40 mg PO QAM 05/30/18 06/11/18 Memantine [Namenda] 10 mg PO BID 05/30/18 06/11/18 Morphine Sulfate ER [Ms Contin] 15 mg PO Q6H PRN 05/30/18 06/11/18 Previous Rx's Medication Instructions Recorded Aspirin 325 mg PO BID #60 tab 06/12/18 Sennosides [Senokot] 1 tab PO BID #60 tablet 06/12/18 Allergies Allergy/AdvReac Type Severity Reaction Status Date / Time strawberry Allergy Unknown Unknown Verified 06/21/19 21:07 atropine sulfate Allergy Rash/Hives Verified 06/21/19 21:07 [From ] Barbiturates Allergy Rash/Hives/ Verified 06/21/19 21:07 swelling Histamine H2 Inhibitors Allergy Unknown Verified 06/21/19 21:07 hyoscyamine sulfate Allergy Rash/Hives Verified 06/21/19 21:07 [From ] phenobarbital [From ] Allergy Rash/Hives Verified 06/21/19 21:07 scopolamine hydrobromide Allergy Rash/Hives Verified 06/21/19 21:07 [From ] adhesive AdvReac red skin Verified 06/21/19 21:07 lorazepam [From Ativan] AdvReac Nausea & Verified 06/21/19 21:07 Vomiting meperidine HCl [From Demerol] AdvReac elevated BP Verified 06/21/19 21:07 metronidazole [From Flagyl] AdvReac headache, Verified 06/21/19 21:07 arms numb Sulfa (Sulfonamide AdvReac Nausea & Verified 06/21/19 21:07 Antibiotics) Vomiting Review of Systems ROS Statement: Those systems with pertinent positive or pertinent negative responses have been documented in the HPI. ROS Other: All systems not noted in ROS Statement are negative. Past Medical History Past Medical History: Cancer, Fibromyalgia, GERD/Reflux, Hypertension, Memory Impairment, Musculoskeletal Disorder, Neurologic Disorder, Osteoarthritis (OA) Additional Past Medical History / Comment(s): Essential tremors, DDD, hx migraines, hx skin cancer, blood in stool, elevated liver enzymes, fall 2016- shattered left elbow and humous - has 3 plates and 11 screws and only 70% usage of left arm. Current cyst at root of L2-L3, causing pain. History of Any Multi-Drug Resistant Organisms: MRSA Date of last positivie culture/infection: 2011 MDRO Source:: rt buttock Past Surgical History: Appendectomy, Bariatric Surgery, Joint Replacement, Orthopedic Surgery, Tonsillectomy, Tubal Ligation Additional Past Surgical History / Comment(s): Gastric sleeve, uterine repair surgery from an IUD, neuroma removed bilateral feet, bunionectomy, tendon rel ease left leg, skin cancer(mole) removed from right breast, left knee replacement, surgery on left arm/elbow from injury(3 plates and 11 screws), lasik left eye surgery. Past Anesthesia/Blood Transfusion Reactions: Previous Problems w/ Anesthesia, Motion Sickness, Postoperative Nausea & Vomiting (PONV) Additional Past Anesthesia/Blood Transfusion Reaction / Comment(s): PONV, dizziness, BP tends to go high. Past Psychological History: Depression Smoking Status: Former smoker Past Alcohol Use History: None Reported Past Drug Use History: None Reported - Past Family History Brother(s) Family Medical History: Cancer Sister(s) Family Medical History: Cancer Mother Family Medical History: Deep Vein Thrombosis (DVT) General Exam - General Exam Comments Initial Comments: Physical Exam GENERAL: Unwell appearing, febrile, diaphoretic Appears uncomfortable, dehydrated HENT: Normocephalic, Atraumatic. EYES: PERRL, EOMI PULMONARY: Unlabored respirations CARDIOVASCULAR: Tachycardic, regular, warm and well perfused extremities ABDOMEN: Soft and nontender with normal bowel sounds. SKIN: Well-healing surgical incision in the left elbow, surrounding erythema and signs of cellulitis : Deferred NEUROLOGIC: Patient is alert and oriented x3. Moving all extremities spontaneously MUSCULOSKELETAL: Decreased range of motion of the left elbow secondary to pain, joint is red hot swollen concerning for a postoperative septic joint PSYCHIATRIC: Normal psychiatric evaluation. Limitations: no limitations Course Vital Signs 06/21/19 06/21/19 06/21/19 21:04 22:23 23:11 Temperature 102.1 F H 102 F H 99.3 F Pulse Rate 119 H 101 H 93 Respiratory 20 18 20 Rate Blood Pressure 141/81 109/62 97/63 O2 Sat by Pulse 96 98 94 L Oximetry Medical Decision Making - Medical Decision Making The patient was seen and evaluated upon arrival to the emergency department, patient is noted be febrile, tachycardic tachypneic Physical exam is concerning for left elbow infection excited. Sepsis workup was ordered Patient will be treated with vancomycin and Zosyn Tylenol and Motrin were ordered for antipyretics 2 L of IV fluids was ordered Labs resulted with leukocytosis with neutrophilia, elevated CRP X-rays are unremarkable There is no signs of end organ damage, no signs of septic shock or severe sepsis Patient will be transferred to facility where her orthopedic surgeon works. Patient requests transfer to [facility]. Patient care was discussed with the ER physician Dr. Castelan Patient care discussed with Catarino BECKETT for Dr Peña who accepts admission to inpatient The patient was reevaluated, she remains febrile however her heart rate is improved to 90s, blood pressure is stable, patient was given a dose of antiemetics and morphine prior to transfer due to the pain in her left elbow - Lab Data Result diagrams: 06/21/19 21:25 06/21/19 21:25 Lab Results 06/21/19 06/21/19 06/21/19 Range/Units 21:25 21:25 21:25 WBC 13.2 H (3.8-10.6) k/uL RBC 3.92 (3.80-5.40) m/uL Hgb 12.4 (11.4-16.0) gm/dL Hct 37.3 (34.0-46.0) % MCV 95.0 (80.0-100.0) fL MCH 31.6 (25.0-35.0) pg MCHC 33.3 (31.0-37.0) g/dL RDW 14.2 (11.5-15.5) % Plt Count 169 (150-450) k/uL Neutrophils % 94 % Lymphocytes % 3 % Monocytes % 2 % Eosinophils % 1 % Basophils % 0 % Neutrophils # 12.5 H (1.3-7.7) k/uL Lymphocytes # 0.4 L (1.0-4.8) k/uL Monocytes # 0.3 (0-1.0) k/uL Eosinophils # 0.1 (0-0.7) k/uL Basophils # 0.0 (0-0.2) k/uL PT (9.0-12.0) sec INR (<1.2) APTT (22.0-30.0) sec Sodium 131 L (137-145) mmol/L Potassium 3.9 (3.5-5.1) mmol/L Chloride 100 (98-107) mmol/L Carbon Dioxide 22 (22-30) mmol/L Anion Gap 9 mmol/L BUN 18 H (7-17) mg/dL Creatinine 0.66 (0.52-1.04) mg/dL Est GFR (CKD-EPI)AfAm >90 (>60 ml/min/1.73 sqM) Est GFR (CKD-EPI)NonAf >90 (>60 ml/min/1.73 sqM) Glucose 118 H (74-99) mg/dL Plasma Lactic Acid Tim 1.4 (0.7-2.0) mmol/L Calcium 8.8 (8.4-10.2) mg/dL Total Bilirubin 1.5 H (0.2-1.3) mg/dL AST 24 (14-36) U/L ALT 25 (9-52) U/L Alkaline Phosphatase 112 (38-126) U/L Creatine Kinase 30 (30-135) U/L C-Reactive Protein 231.6 H (<10.0) mg/L Total Protein 6.1 L (6.3-8.2) g/dL Albumin 3.5 (3.5-5.0) g/dL 06/21/19 Range/Units 21:25 WBC (3.8-10.6) k/uL RBC (3.80-5.40) m/uL Hgb (11.4-16.0) gm/dL Hct (34.0-46.0) % MCV (80.0-100.0) fL MCH (25.0-35.0) pg MCHC (31.0-37.0) g/dL RDW (11.5-15.5) % Plt Count (150-450) k/uL Neutrophils % % Lymphocytes % % Monocytes % % Eosinophils % % Basophils % % Neutrophils # (1.3-7.7) k/uL Lymphocytes # (1.0-4.8) k/uL Monocytes # (0-1.0) k/uL Eosinophils # (0-0.7) k/uL Basophils # (0-0.2) k/uL PT 12.4 H (9.0-12.0) sec INR 1.2 H (<1.2) APTT 27.4 (22.0-30.0) sec Sodium (137-145) mmol/L Potassium (3.5-5.1) mmol/L Chloride (98-107) mmol/L Carbon Dioxide (22-30) mmol/L Anion Gap mmol/L BUN (7-17) mg/dL Creatinine (0.52-1.04) mg/dL Est GFR (CKD-EPI)AfAm (>60 ml/min/1.73 sqM) Est GFR (CKD-EPI)NonAf (>60 ml/min/1.73 sqM) Glucose (74-99) mg/dL Plasma Lactic Acid Tim (0.7-2.0) mmol/L Calcium (8.4-10.2) mg/dL Total Bilirubin (0.2-1.3) mg/dL AST (14-36) U/L ALT (9-52) U/L Alkaline Phosphatase (38-126) U/L Creatine Kinase (30-135) U/L C-Reactive Protein (<10.0) mg/L Total Protein (6.3-8.2) g/dL Albumin (3.5-5.0) g/dL Disposition Clinical Impression: Postoperative infection, Sepsis Disposition: OTHER INSTITUTION NOT DEFINED Condition: Stable Referrals: Ceasar Paulino MD [Primary Care Provider] - 1-2 days - Out of Hospital Transfer - Req. Specs Out of Hospital Transfer - Requested Specifics: Other Emergency Center ([facility])
[2019-06-21 22:32] LABS: C Reactive Protein 231.6 mg/L (<10.0)
[2019-06-21 23:14] VITALS: BP 97/63; PULSE 93; RESP 20; TEMP 99.3
[2019-06-21] MEDS ORDERED: ONDANSETRON 4 MG/2 ML VIAL IVP STA (23:31)
[2019-06-21] MEDS ORDERED: MORPHINE SULFATE 4 MG/ML SYRINGE IVP STA (23:31)
[2019-06-22] MEDS ORDERED: VANCOMYCIN 1,500 MG in SODIUM CHLORIDE 0.9% 250 ML IVPB SCH (11:00)
== END 2019-06-21 23:51 | disposition other institution (70) ==
LOC: EC 20:54
DX: T81.40XA Infection following a procedure, unspecified, initial encounter (principal); T81.44XA Sepsis following a procedure, initial encounter; A41.9 Sepsis, unspecified organism; I10 Essential (primary) hypertension; F32.9 Major depressive disorder, single episode, unspecified; M19.90 Unspecified osteoarthritis, unspecified site; Z79.899 Other long term (current) drug therapy; Z91.018 Allergy to other foods; Z88.8 Allergy status to other drugs, medicaments and biological substances; Z91.048 Other nonmedicinal substance allergy status; Z88.1 Allergy status to other antibiotic agents; Z88.2 Allergy status to sulfonamides; Z88.5 Allergy status to narcotic agent; Z87.891 Personal history of nicotine dependence; Z96.652 Presence of left artificial knee joint; Z85.828 Personal history of other malignant neoplasm of skin; Z98.84 Bariatric surgery status; Z98.890 Other specified postprocedural states
CPT/HCPCS: 99284; 96365; 96366; 96368; 96375 ×2; 36415; 93005; 80053; 82550; 83605; 85025; 85610; 85730; 86140; 87040; 73070; 71046; J2543; J3370; J2270; J2405

== ENCOUNTER → 2019-10-31 | Outpatient (CLI) | payer MEDICARE, BC ==
--- NOTE | 2019-10-31 08:09 | MR ---
EXAMINATION TYPE: MR lumbar spine wo con DATE OF EXAM: 10/31/2019 COMPARISON: MRI lumbar spine May 09, 2018. HISTORY: Spinal stenosis per order. Low back pain for years per patient. TECHNIQUE: Multiplanar, multisequence imaging of the lumbar spine is performed without IV contrast. FINDINGS: There is levoconvex scoliosis centered at L1-L2 level redemonstrated. Sagittal images of th e lumbar spine show vertebral body heights to remain satisfactory. Alignment is stable and straighten ed on sagittal images. Multilevel disc desiccation with mild to moderate multilevel disc space narrow ing that shows relative sparing of L4-L5 level similar to prior. Multilevel posterior disc herniatio ns on sagittal images. The conus medullaris remains normal in position ending at L1-L2 level without abnormal signal. Their is fairly moderate multilevel anterior spurring with heterogeneous bone marrow signal intensity that shows Modic type II endplate changes right L1-L2 level and Modic type I endpla te changes posterior L3-L4 level. Axial images at T12-L1 levels show mild broad disc bulge with mild right-sided facet degenerative jesse nge. There is some effacement of the anterior thecal sac. No significant change from prior. Axial images at the L1-L2 level showed mild right-sided facet degenerative change and ligamentum flav um hypertrophy effacing math professor lateral thecal sac along with mild/moderate broad-based disc bulge eff acing the anterior thecal sac with mild right sided anterior inferior neural foraminal narrowing. No significant change from prior. Axial images at the L2-L3 level shows moderate broad-based disc bulge effacing the anterior thecal sa c with [id number] facet degenerative changes with hypertrophy present. Thecal sac. Mild right-s ided anterior inferior neural foraminal narrowing. No significant change from prior. Axial images at the L3-L4 level show moderate to advanced broad-based disc bulge effacing the anterio r thecal sac with moderate to advanced facet degenerative changes with multiple hypertrophy of the po sterior lateral thecal sac greater on the left side, there is severe right and moderate left-sided ne ural foraminal narrowing with encroachment on right L3 nerve seen anteriorly sagittal image 13 and ax ial image 13. No significant change from prior. Axial images at the L4-L5 level show [id number] broad disc bulge and facet degenerative changes bilaterally with some effacement of the anterior thecal sac and mild to moderate left greater than r ight bilateral neural foraminal narrowing. No significant change from prior. There is persistent smal l synovial cyst extraforaminal level axial image 9 that is just posterior to the exiting nerve. Axial images at the L5-S1 level show mild facet degenerative changes bilaterally with tiny central di sc protrusion minimally effacing the anterior thecal sac, bilateral neural foramina are patent. No si gnificant change from prior. There are some gas prominent colonic loops in the visualized abdomen redemonstrated. IMPRESSION: Loss of normal lumbar curvature with Multilevel degenerative changes in the lumbar spine as detailed above. Findings most prominent at L3-L4 level. No significant change or progression from prior MRI.
== END | disposition home or self-care (01) ==
LOC: RADMRIMAIN 07:08
PROVIDERS: ATTEND Pain Medicine Pain Medicine
DX: M99.73 Connective tissue and disc stenosis of intervertebral foramina of lumbar region (principal); M48.061 Spinal stenosis, lumbar region without neurogenic claudication; M51.25 Other intervertebral disc displacement, thoracolumbar region; M51.26 Other intervertebral disc displacement, lumbar region; M47.815 Spondylosis without myelopathy or radiculopathy, thoracolumbar region; M47.816 Spondylosis without myelopathy or radiculopathy, lumbar region; M41.86 Other forms of scoliosis, lumbar region
CPT/HCPCS: 72148

== ENCOUNTER → 2020-10-27 | Outpatient (CLI) | payer MEDICARE, BC ==
--- NOTE | 2020-11-02 09:39 | MM ---
Reason for exam: screening (asymptomatic). Last mammogram was performed 11 years ago. History: Patient is postmenopausal and history of other cancer. Family history of breast cancer in sister at age 58. Physical Findings: A clinical breast exam by your physician is recommended on an annual basis and results should be correlated with mammographic findings. MG 3D Screening Mammo W/Cad Bilateral CC and MLO view(s) were taken. Prior study comparison: November 08, 2009, mammogram, performed at [facility]. There are scattered fibroglandular densities. There are benign appearing round calcifications bilaterally. There is no discrete abnormality. ASSESSMENT: Benign, BI-RAD 2 RECOMMENDATION: Routine screening mammogram of both breasts in 1 year.
== END | disposition home or self-care (01) ==
LOC: RADMAMWWP 16:16
PROVIDERS: ATTEND Family Medicine
DX: Z12.31 Encounter for screening mammogram for malignant neoplasm of breast (principal)
CPT/HCPCS: 77063; 77067

== ENCOUNTER → 2022-03-16 | Outpatient (CLI) | payer MEDICARE, BC ==
--- NOTE | 2022-03-16 13:47 | US ---
EXAMINATION TYPE: US abdomen complete DATE OF EXAM: 03/16/2022 COMPARISON: CT & US 2017 CLINICAL HISTORY: 67-year-old female R10.11 right upper quadrant pain. Intermittent sharp RUQ pain x 6 months, patient not NPO - had coffee TECHNIQUE: Multiple sonographic images of the abdomen are obtained. FINDINGS: EXAM MEASUREMENTS: Liver Length: 16.4 cm Gallbladder Wall: 0.2 cm CBD: 5.8 mm Spleen: 10.8 cm Right Kidney: 9.7 x 4.2 x 4.6 cm Left Kidney: 9.6 x 3.6 x 4.0 cm Gas Reverser note:Difficult and limited study due to patient body habitus Pancreas: obscured by overlying midline bowel gas Liver: wnl Gallbladder: wnl Evidence for sonographic Huang's sign: no CBD: Upper limits of normal, acceptable given patient's age. Spleen: wnl Right Kidney: Extrarenal pelvis versus 1.8 cm parapelvic cyst. No calyceal dilatation to suggest hydr onephrosis. Left Kidney: wnl Upper IVC: wnl Abd Aorta: proximal portion appears wnl, mid and distal portions obscured by overlying midline bowel gas IMPRESSION: 1. No gallstones or biliary ductal dilatation. 2. Either an extrarenal pelvis or a 1.8 cm parapelvic cyst right kidney incidentally noted.
== END | disposition home or self-care (01) ==
LOC: RADUSWWP 08:57
PROVIDERS: ATTEND Family Medicine
DX: N28.1 Cyst of kidney, acquired (principal)
CPT/HCPCS: 76700

== ENCOUNTER → 2022-07-13 | Outpatient (CLI) | payer MEDICARE, BC ==
--- NOTE | 2022-07-14 05:49 | MR ---
EXAMINATION TYPE: MR cervical spine wo con DATE OF EXAM: 07/13/2022 COMPARISON: None HISTORY: Neck pain FINDINGS: Images obtained with no contrast. Cervical vertebra have normal alignment. There is degenerative disc space narrowing from C4 to C7 wit h spurring of the endplates. Cervical spinal cord appears normal. There is intact brainstem. No evide nce of focal bone destruction. There is mild hypertrophic multilevel cervical facet arthropathy. No p araspinal mass. No evidence of any significant spinal stenosis. Spinal canal measures 7 mm at C4-5 wh ich is the narrowest point. IMPRESSION: Multilevel spondylotic changes. No significant spinal stenosis. No fracture.
== END | disposition home or self-care (01) ==
LOC: RADMRIMAIN 10:27
PROVIDERS: ATTEND Pain Medicine Pain Medicine
DX: M47.812 Spondylosis without myelopathy or radiculopathy, cervical region (principal); M50.223 Other cervical disc displacement at C6-C7 level
CPT/HCPCS: 72141

== ENCOUNTER → 2022-10-30 | Outpatient (CLI) | payer MEDICARE, BC ==
--- NOTE | 2022-10-30 16:17 | US ---
EXAMINATION TYPE: US kidneys/renal and bladder DATE OF EXAM: 10/30/2022 COMPARISON: Ultrasound 03/16/2022 CLINICAL HISTORY: R31.9 HEMATURIA. Right flank pain EXAM MEASUREMENTS: Right Kidney: 9.2 x 4.7 x 3.3 cm Left Kidney: 10.2 x 3.8 x 3.8 cm Right Kidney: Medial anechoic lesion at hilum - 1.0 x 0.9 cm which is felt to represent a renal pelvi s which is similar to mildly decreased from 03/16/2022. Left Kidney: No hydronephrosis or masses seen Bladder: moderately distended, anechoic Bilateral Jets not seen There is no evidence for hydronephrosis at this point in time. No nephrolithiasis is seen. No adrian s are identified. The urinary bladder is anechoic. IMPRESSION: No evidence of obstructive uropathy. Similar to mildly decreased mild dilation of the right renal pel vis.
== END | disposition home or self-care (01) ==
LOC: RADUSWWP 14:45
PROVIDERS: ATTEND Family Medicine
DX: N28.89 Other specified disorders of kidney and ureter (principal); R31.9 Hematuria, unspecified
CPT/HCPCS: 76770

== ENCOUNTER → 2023-05-18 | Outpatient (CLI) | payer MEDICARE, BC ==
--- NOTE | 2023-05-18 11:47 | MR ---
EXAMINATION TYPE: MR lumbar spine wo con DATE OF EXAM: 05/18/2023 COMPARISON: 10/31/2019 HISTORY: Pain TECHNIQUE: T1 and T2 axial and sagittal images of the lumbar spine are submitted. FINDINGS: There is no abnormal signal seen within the visualized spinal cord or paraspinal soft tissu es. There is a scoliotic curve to the spine with severe degenerative disc disease and vacuum disc at nearly all levels. L5-S1 demonstrates relative preservation of disc signal and space. At T12-L1 there is severe degenerative disc disease and there is advanced right-sided facet arthropat hy and moderate changes on the left. There is circumferential disc bulging with mild right-sided fora chris encroachment. At L1-2 there is hypertrophic change of the facets. There is a circumferential disc bulging but no fo harpal disc herniation or canal stenosis. There is mild right-sided foraminal encroachment. At L2-3 there is hypertrophic change of the facets with degenerative disc disease. There is no disc h erniation or canal stenosis. Mild left-sided foraminal encroachment. At L3-4 there is severe degenerative disc disease with diffuse disc bulging, advanced facet arthropat hy and ligamentum flavum hypertrophy. There is mild central stenosis. There is greater right lateral disc bulging results in moderate right foraminal encroachment and suspect contact the exiting nerve r oot. At L4-5 there is mild degenerative disc disease with advanced facet arthropathy, ligamentum flavum hy pertrophy and diffuse circumferential disc bulging. Moderate canal stenosis and bilateral foraminal e ncroachment greater on the left. At L5-S1 there is relative preservation of disc signal and space with the no foraminal encroachment o r canal stenosis. No disc herniation. Advanced facet arthropathy. IMPRESSION: 1. Scoliosis with multilevel severe degenerative disc disease and advanced facet arthropathy. There i s mild central stenosis L3-L4 and moderate canal stenosis at L4-L5 due to hypertrophic changes and di ffuse disc bulging.
== END | disposition home or self-care (01) ==
LOC: RADMRIMAIN 10:38
PROVIDERS: ATTEND Pain Medicine Pain Medicine
DX: M51.16 Intervertebral disc disorders with radiculopathy, lumbar region (principal); M47.26 Other spondylosis with radiculopathy, lumbar region; M48.061 Spinal stenosis, lumbar region without neurogenic claudication; M41.86 Other forms of scoliosis, lumbar region
CPT/HCPCS: 72148

== ENCOUNTER 2024-12-25 23:06 | Emergency (ER) | payer MEDICARE, BC ==
[2024-12-25 23:15] VITALS: RESP 18; TEMP 98.3
--- NOTE | 2024-12-25 23:34 | ED ---
Fall HPI - General Chief Complaint: Fall Stated Complaint: Fall Time Seen by Provider: 12/25/24 23:10 Source: patient, EMS Mode of arrival: EMS - History of Present Illness Initial Comments: Patient is a 69-year-old female presenting today for mechanical trip and fall and resultant right elbow injury. Patient states that she was stepping outside to going get her dog when she slipped on a patch of ice and fell onto her right side sustaining laceration to right forehead and an injury to her right elbow. Patient states that she has previously broken her left elbow/humerus and this feels like that injury. Of note patient is chronically on oral morphine for chronic pain. Denies alcohol use today. Denies neck pain or additional injury. Was able to stand and ambulate with the assistance of her . No blood thinners. - Related Data Home Medications Medication Instructions Recorded Confirmed Albuterol Sulfate [Proair Hfa] 2 puff INHALATION RT-Q6H PRN 01/14/16 06/11/18 Pramipexole [Mirapex] 0.25 mg PO HS 01/14/16 06/11/18 Temazepam [Restoril] 30 mg PO HS PRN 01/14/16 06/11/18 traZODone HCL [Desyrel] 100 mg PO HS PRN 01/14/16 06/11/18 Propranolol [Inderal] 10 mg PO DAILY 11/21/16 06/11/18 oxyCODONE HCL [OxyCONTIN] 10 mg PO Q4H PRN 11/21/16 06/11/18 Cyclobenzaprine [Flexeril] 5 mg PO QID 11/27/17 06/11/18 Losartan Potassium 50 mg PO HS@1900 11/27/17 06/11/18 amLODIPine BESYLATE [Norvasc] 5 mg PO HS 11/27/17 06/11/18 EPINEPHrine (Auto Inject) [Epipen] 0.3 mg IM ONCE PRN 05/30/18 06/11/18 FLUoxetine HCL [PROzac] 40 mg PO QAM 05/30/18 06/11/18 Memantine [Namenda] 10 mg PO BID 05/30/18 06/11/18 Morphine Sulfate ER [Ms Contin] 15 mg PO Q6H PRN 05/30/18 06/11/18 Previous Rx's Medication Instructions Recorded Aspirin 325 mg PO BID #60 tab 08/08/18 Sennosides [Senokot] 1 tab PO BID #60 tablet 06/12/18 Allergies Allergy/AdvReac Type Severity Reaction Status Date / Time strawberry Allergy Unknown Unknown Verified 06/21/19 21:07 atropine sulfate Allergy Rash/Hives Verified 06/21/19 21:07 [From ] Barbiturates Allergy Rash/Hives/ Verified 06/21/19 21:07 swelling Histamine H2 Inhibitors Allergy Unknown Verified 06/21/19 21:07 hyoscyamine sulfate Allergy Rash/Hives Verified 06/21/19 21:07 [From ] phenobarbital [From ] Allergy Rash/Hives Verified 06/21/19 21:07 scopolamine hydrobromide Allergy Rash/Hives Verified 06/21/19 21:07 [From ] adhesive AdvReac red skin Verified 06/21/19 21:07 lorazepam [From Ativan] AdvReac Nausea & Verified 06/21/19 21:07 Vomiting meperidine HCl [From Demerol] AdvReac elevated BP Verified 06/21/19 21:07 metronidazole [From Flagyl] AdvReac headache, Verified 06/21/19 21:07 arms numb Sulfa (Sulfonamide AdvReac Nausea & Verified 06/21/19 21:07 Antibiotics) Vomiting Review of Systems ROS Statement: Those systems with pertinent positive or pertinent negative responses have been documented in the HPI. ROS Other: All systems not noted in ROS Statement are negative. Past Medical History Past Medical History: Cancer, Fibromyalgia, GERD/Reflux, Hypertension, Memory Impairment, Musculoskeletal Disorder, Neurologic Disorder, Osteoarthritis (OA) Additional Past Medical History / Comment(s): Essential tremors, DDD, hx migraines, hx skin cancer, blood in stool, elevated liver enzymes, fall 2016- shattered left elbow and humous - has 3 plates and 11 screws and only 70% usage of left arm. Current cyst at root of L2-L3, causing pain. History of Any Multi-Drug Resistant Organisms: MRSA Date of last positivie culture/infection: 2011 MDRO Source:: rt buttock Past Surgical History: Appendectomy, Bariatric Surgery, Joint Replacement, Orthopedic Surgery, Tonsillectomy, Tubal Ligation Additional Past Surgical History / Comment(s): Gastric sleeve, uterine repair surgery from an IUD, neuroma removed bilateral feet, bunionectomy, tendon release left leg, skin cancer(mole) removed from right breast, left knee replacement, surgery on left arm/elbow from injury(3 plates and 11 screws), lasik left eye surgery. Past Anesthesia/Blood Transfusion Reactions: Previous Problems w/ Anesthesia, Motion Sickness, Postoperative Nausea & Vomiting (PONV) Additional Past Anesthesia/Blood Transfusion Reaction / Comment(s): PONV, dizziness, BP tends to go high. Past Psychological History: Depression Past Alcohol Use History: None Reported Past Drug Use History: None Reported - Past Family History Brother(s) Family Medical History: Cancer Sister(s) Family Medical History: Cancer Mother Family Medical History: Deep Vein Thrombosis (DVT) General Exam - General Exam Comments Initial Comments: PE: CONSTITUTIONAL: [no apparent distress, well appearing] SKIN: [warm, dry, no jaundice, hives or petechiae] EYES:[ pupils are equally round, extraocular movements intact without nystagmus, clear conjunctiva, non-icteric sclera] HENT: [normocephalic, atraumatic, moist mucus membranes, oropharynx clear without exudates] NECK: , [Full range of motion, normal appearance] PULMONARY: [clear to auscultation without wheezes, rhonchi, or rales, normal excursion, no accessory muscle use and no stridor] CARDIOVASCULAR:[ regular rate, rhythm, normal S1 and S2. No appreciated murmurs, rubs or gallops. Strong radial pulses with intact distal perfusion. No lower extremity edema] GASTROINTESTINAL: [soft, active bowel sounds throughout, non-tender, non- distended, no palpable masses, no rebound or guarding. No hepatosplenomegaly] GENITOURINARY: MUSCULOSKELETAL: [Extremities have no gross deformity, no edema, redness, or swelling. No calf swelling ] NEUROLOGIC: [_a/o x 3, GCS 15, normal mentation and speech. Moves all extremities x 4 without motor or sensory deficit] PSYCHIATRIC:[ _normal mood and affect, thought process is clear and linear] Limitations: no limitations Course Vital Signs 12/25/24 23:08 Temperature 98.3 F Pulse Rate 82 Respiratory 18 Rate Blood Pressure 146/78 O2 Sat by Pulse 98 Oximetry Procedures - Orthopedic Splinting/Casting Injury #1 Side: right Upper Extremity Injury Location: elbow Upper Extremity Immobilizer: sling/shoulder immobilizer, posterior splint Medical Decision Making - Medical Decision Making Was pt. sent in by a medical professional or institution (SOPHY Herron, HOME CARE MUSIC THERAPIST, urgent care, hospital, or snf...) When possible be specific @ -[No] Did you speak to anyone other than the patient for history (EMS, parent, family, police, friend...)? What history was obtained from this source @ -[No] Did you review nursing and triage notes (agree or disagree)? Why? @ -[I reviewed nursing and triage notes] Were old charts reviewed (outside hosp., previous admission, EMS record, old EKG, old radiological studies, urgent care reports/EKG's, snf records)? Report findings @ -[Medical records reviewed] Differential Diagnosis (chest pain, altered mental status, abdominal pain women, abdominal pain men, vaginal bleeding, weakness, fever, dyspnea, syncope, headache, dizziness, GI bleed, back pain, seizure, CVA, palpatations, mental health, musculoskeletal)? @Differential Musculoskeletal Muscular strain, contusion, ligament sprain, fracture, arthritis, septic arthritis, bursitis, cellulitis, muscle spasm, nerve compression, DVT, arterial occlusion, herpes zoster, electrolyte abnormality, tumor.... This is not meant to be in all inclusive list EKG interpreted by me (3pts min.). @ -[As above] X-rays interpreted by me (1pt min.). @ -[None done] CT interpreted by me (1pt min.). @ -On personal review of CT brain and C-spine I see no evidence of hemorrhage, skull fracture or C-spine fracture or malalignment U/S interpreted by me (1pt. min.). @ -[None done] What testing was considered but not performed or refused? (CT, X-rays, U/S, labs)? Why? @ -[None] What meds were considered but not given or refused? Why? @ -[None] Did you discuss the management of the patient with other professionals (professionals i.e. SOPHY Herron, HOME CARE MUSIC THERAPIST, lab, RT, psych nurse, social contact worker, wrapper sizer, teacher, branch lending officer, telephonic case manager)? Give summary @ -[No] Was smoking cessation discussed for >3mins.? @ -[No] Was critical care preformed (if so, how long)? @ -[No] Were there social determinants of health that impacted care today? How? (Homelessness, low income, unemployed, alcoholism, drug addiction, transportation, low edu. Level, literacy, decrease access to med. care, senior living, rehab)? @ -[No] Was there de-escalation of care discussed even if they declined (Discuss DNR or withdrawal of care, Hospice)? @ -[No] What co-morbidities impacted this encounter? (DM, HTN, Smoking, COPD, CAD, Cancer, CVA, ARF, Chemo, Hep., AIDS, mental health diagnosis, sleep apnea, morbid obesity)? @ -Chronic pain, fibromyalgia Was patient admitted / discharged? Hospital course, mention meds given and route, prescriptions, significant lab abnormalities, going to OR and other pertinent info. @ -[hospital course] patient is a pleasant 69-year-old female presenting today for elbow and head injury after slipping on ice. No LOC, no focal deficits, small duration of laceration to right forehead, swelling, tenderness, bruising along lateral right elbow tenderness palpation distal humerus, lateral epicondyle. Patient Dors is some tingling and ulnar nerve deviation at the pinky and fourth digit. Otherwise extremity is neurovascularly intact. Plan for plain films of the extremity, pain control, CT brain C-spine given patient's age. Patient with lateral epicondylar fracture. Discussed case with Dr. Costa, orthopedics, appreciate recs. Recommended posterior long-arm splint, close follow-up, request CT of the elbow with 3D reconstruction prior to discharge. Laceration repaired, 3 sutures placed, splint applied, patient directed to follow-up with Dr. Diaz. Po splint check shows right upper extremity neurovascularly intact Undiagnosed new problem with uncertain prognosis? @ -[No] Drug Therapy requiring intensive monitoring for toxicity (Heparin, Nitro, Insulin, Cardizem)? @ -[No] Were any procedures done? @ -[No] Diagnosis/symptom? @ -Supracondylar fracture Acute, or Chronic, or Acute on Chronic? @Acute Uncomplicated (without systemic symptoms) or Complicated (systemic symptoms)? @Uncomplicated Side effects of treatment? @ -[No] Exacerbation, Progression, or Severe Exacerbation? @ -[No] Poses a threat to life or bodily function? How? (Chest pain, [place], [place], pneumonia, PE, COPD, DKA, ARF, appy, cholecystitis, CVA, Diverticulitis, Homicidal, Suicidal, threat to staff... and all critical care pts) @ -[No] Disposition Clinical Impression: Fall, Laceration of forehead, Supracondylar fracture of humerus Disposition: HOME SELF-CARE Condition: Good Instructions (If sedation given, give patient instructions): Care For Your Stitches (DC) Additional Instructions: Every disease is a spectrum and a small chance still exists that a serious condition could develop, for this reason, please monitor yourself closely for new, changing or worsening symptoms, uncontrollable pain, change in skin color such as paleness, appiah color or blue color of your hand or upper extremity, excessive swelling, new numbness in your affected extremity, signs of infection at your laceration site such as discharge, swelling, pain or, fever, inability to tolerate/keep down fluids or your medications, inability to follow up with outpatient providers as instructed and should you experience these symptoms or should you have any further concerns for your wellbeing please return to the ED or call [address]. [address] Costa's office first thing in the morning for next well appointment. You can use home pain medications to control pain. Please ice and elevate your affected extremity 20 minutes every 3-4 hours as needed for pain and swelling. Please keep your splint on at all times, you may remove your sling as needed for sleep. Your sutures can be removed in 4 to 5 days in the emergency department, at a local urgent care or by your primary care provider. PLEASE call your primary care physician as soon as possible to arrange / discuss plan for followup appointment. Appointment in the next 1-3 days is strongly encouraged if possible. PLEASE let us know here before you leave if there is anything further we can do to be of any assistance. Take care and feel Better! Is patient prescribed a controlled substance at d/c from ED?: No When asked, does pt state using other controlled substances?: No Referrals: Ceasar Paulino MD [Primary Care Provider] - 1-2 days Cristi Costa MD [STAFF PHYSICIAN] - 1-2 days
[2024-12-25] MEDS: HYDROmorphone 1 MG/ML 1 ML SYRINGE IVP STA (23:50)
[2024-12-26] MEDS: LIDOCAINE 1%-EPI 1:100,000 20 ML VIAL SQ STA (00:33)
[2024-12-26] MEDS: KETOROLAC 15 MG/ML 1 ML VIAL IVP STA (00:33)
[2024-12-26] MEDS: ACETAMINOPHEN IV (For NPO) 1,000 MG in EMPTY BAG 1 BAG IVPB STA (00:34)
--- NOTE | 2024-12-26 01:16 | CT ---
EXAM: CT Head Without Intravenous Contrast CLINICAL HISTORY: ITS.REASON CT Reason: fall, left forehead injury, >65 yrs old TECHNIQUE: Axial computed tomography images of the head/brain without intravenous contrast. CTDI is 29 mGy and DLP is 1214.7 mGy-cm. This CT exam was performed using one or more of the following dose reduction techniques: automated exposure control, adjustment of the mA and/or kV according to patient size, and/or use of iterative reconstruction technique. COMPARISON: No relevant prior studies available. FINDINGS: Brain: Mild volume loss with prominent ventricles and sulci. Mild periventricular white matter hypoattenuation likely reflects chronic small vessel disease. No hemorrhage. Ventricles: See above. Bones/joints: Unremarkable. No acute fracture. Soft tissues: Right forehead soft tissue swelling and laceration. Sinuses: Unremarkable as visualized. No acute sinusitis. Mastoid air cells: Unremarkable as visualized. No mastoid effusion. IMPRESSION: 1. No evidence of acute intracranial abnormality or skull fracture. 2. Right forehead soft tissue swelling and laceration. EXAM: CT Cervical Spine Without Intravenous Contrast CLINICAL HISTORY: ITS.REASON CT Reason: fall, left forehead injury, >65 yrs old TECHNIQUE: Axial computed tomography images of the cervical spine without intravenous contrast. CTDI is 29 mGy and DLP is 425.4 mGy-cm. This CT exam was performed using one or more of the following dose reduction techniques: automated exposure control, adjustment of the mA and/or kV according to patient size, and/or use of iterative reconstruction technique. COMPARISON: No relevant prior studies available. FINDINGS: Vertebrae: Unremarkable. No acute fracture. Discs/spinal canal/neural foramina: Degenerative changes. No severe canal stenosis. Soft tissues: Unremarkable. IMPRESSION: No acute findings in the cervical spine.
[2024-12-26] MEDS: HYDROmorphone 1 MG/ML 1 ML SYRINGE IVP STA ×2 (01:25→02:26)
--- NOTE | 2024-12-26 01:38 | XR ---
EXAM: XR Right Forearm, 2 Views CLINICAL HISTORY: ITS.REASON XR Reason: fall, right lat elbow swelling, suspect fracture TECHNIQUE: Frontal and lateral views of the right forearm. COMPARISON: No relevant prior studies available. FINDINGS: Bones/joints: Mildly displaced supracondylar fracture. Maximum fracture displacement measures approximately 9 mm. Small hemarthrosis. No dislocation of the radiocapitellar or ulnohumeral articulations. Soft tissues: Lateral subcutaneous edema at the level of the elbow joint. IMPRESSION: 1. Mildly displaced supracondylar fracture. 2. Maximum fracture displacement measures approximately 9 mm.
--- NOTE | 2024-12-26 01:39 | XR ---
EXAM: XR Right Humerus, 2 or More Views CLINICAL HISTORY: [email or web address] XR Reason: concern for distal humerus injury, swelling pt TTP TECHNIQUE: Frontal and lateral views of the right humerus. COMPARISON: No relevant prior studies available. FINDINGS: Bones/joints: Mildly displaced supracondylar fracture. No dislocation. Soft tissues: Unremarkable. IMPRESSION: Mildly displaced supracondylar fracture.
--- NOTE | 2024-12-26 01:47 | XR ---
EXAM: XR Right Hand Complete, 3 or More Views CLINICAL HISTORY: [email or web address] XR Reason: fall, elbow pain swelling pt notes hand pain too TECHNIQUE: Frontal, lateral and oblique views of the right hand. COMPARISON: No relevant prior studies available. FINDINGS: Bones/joints: Diffuse osseous demineralization. No acute fracture or subluxation. Soft tissues: Unremarkable. No radiopaque foreign body. IMPRESSION: No acute fracture or subluxation.
--- NOTE | 2024-12-26 01:48 | CT ---
EXAM: CT Right Upper Extremity Without Intravenous Contrast, Elbow CLINICAL HISTORY: [email or web address] CT Reason: epicondylar fracture, TECHNIQUE: Axial computed tomography images of the right elbow without intravenous contrast. CTDI is 7.30 mGy and DLP is 137.50 mGy-cm. This CT exam was performed using one or more of the following dose reduction techniques: automated exposure control, adjustment of the mA and/or kV according to patient size, and/or use of iterative reconstruction technique. COMPARISON: No relevant prior studies available. FINDINGS: Bones/joints: Mildly displaced supracondylar fracture. Maximum fracture displacement measures approximately 9 mm. Small hemarthrosis. No dislocation of the radiocapitellar or ulnohumeral articulations. Soft tissues: Lateral subcutaneous edema at the level of the elbow joint. IMPRESSION: 1. Mildly displaced supracondylar fracture. 2. Maximum fracture displacement measures approximately 9 mm.
[2024-12-26 02:31] VITALS: BP 150/93; PULSE 95
== END 2024-12-26 02:39 | disposition home or self-care (01) ==
LOC: EC 23:06
DX: S01.81XA Laceration without foreign body of other part of head, initial encounter (principal); S42.411A Displaced simple supracondylar fracture without intercondylar fracture of right humerus, initial encounter for closed fracture; G89.29 Other chronic pain; M79.7 Fibromyalgia; Z91.018 Allergy to other foods; Z88.2 Allergy status to sulfonamides; Z88.1 Allergy status to other antibiotic agents; Z91.048 Other nonmedicinal substance allergy status; Z88.8 Allergy status to other drugs, medicaments and biological substances; W00.0XXA Fall on same level due to ice and snow, initial encounter
CPT/HCPCS: 99285; 29105; 96365; 96375 ×2; 96376 ×2; 73060; 73090; 73130; 72125; 70450; 73200; J1171 ×2; J0131; J1885